=== PATIENT | male | born 1945 | race American Indian/Alaskan Native ===

== ENCOUNTER 2020-07-07 18:02 | Observation (INO) | payer MEDICARE ==
--- NOTE | 2020-07-07 18:51 | Emergency Department Report ---
ED Chest Pain HPI - General Chief Complaint: Chest Pain Stated Complaint: CHEST PAIN Time Seen by Provider: 07/07/20 18:30 Source: patient Mode of arrival: Ambulatory Limitations: No Limitations - History of Present Illness Initial Comments: This is a 75-year-old -[place] male presents to the emergency department via EMS from home with complaint of chest pain that has been going on intermittently over the past 2 weeks. Patient also appears to have some type of a growth to the midsternal to right-sided chest wall that the patient says he is unaware of and says that it was brought to his attention upon arrival to our emergency department. The pain radiates sometimes to the right shoulder, sometimes to the left shoulder, and sometimes towards the back. He denies any shortness of breath, fever, nausea, vomiting or diaphoresis. Patient also says that he has been urinating a lot but it is a small quantity each time. The same can be said of his bowel movements. He is a tobacco smoker but denies any illicit drug use. He does have a history of previous alcohol dependence but says he has not drank in the past 7 weeks. He has a history of a seizure disorder but is not compliant with his seizure medications. He does not have a primary care physician. No recent travel or sick contacts at home. The chest pain worsens with palpation of the chest wall and certain movements. He has not taken anything for symptoms prior to presentation but did receive a full dose aspirin in route with EMS. - Related Data Previous Rx's Medication Instructions Recorded Last Taken Type Divalproex Dr Uma [place]] 125 mg PO BID #60 tablet 02/17/[address] Uma [place]] 125 mg PO BID #60 tablet 02/17/20 Unknown Rx Famotidine [Pepcid] 20 mg PO BID #60 tablet 02/17/20 Unknown Rx Nicotine [Habitrol] 14 mg TD QDAY #7 patch 02/17/20 Unknown Rx levETIRAcetam [Keppra TAB] 750 mg PO BID #60 tablet 02/17/20 Unknown Rx traZODone [Desyrel] 50 mg PO QHS #30 tab 02/17/20 Unknown Rx traZODone [Desyrel] 50 mg PO QHS #30 tablet 02/17/20 Unknown Rx Allergies Allergy/AdvReac Type Severity Reaction Status Date / Time No Known Allergies Allergy Verified 07/07/20 18:23 Heart Score - HEART Score History: Slightly suspicious EKG: Non-specific Age: > 65 Risk factors: 1-2 risk factors Troponin: < normal limit HEART Score: 4 - Critical Actions Critical Actions: 4-6 pts:12-16.6% risk of adverse cardiac event. Should be admitted ED Review of Systems ROS: Stated complaint: CHEST PAIN Other details as noted in HPI Comment: All other systems reviewed and negative Constitutional: denies: chills, fever Eyes: denies: eye pain, vision change ENT: denies: ear pain, throat pain Respiratory: denies: cough, shortness of breath Cardiovascular: chest pain. denies: palpitations Gastrointestinal: denies: abdominal pain, vomiting Genitourinary: frequency. denies: dysuria Musculoskeletal: denies: joint swelling, arthralgia Skin: denies: rash, lesions Neurological: denies: headache, weakness ED Past Medical Hx - Past Medical History Previous Medical History?: Yes Hx Seizures: Yes - Surgical History Past Surgical History?: No - Social History Smoking Status: Current Every Day Smoker Substance Use Type: None - Medications Home Medications: Home Medications Medication Instructions Recorded Confirmed Last Taken Type Divalproex Dr [Elif [place]] 125 mg PO BID #60 tablet 02/17/[address] [Elif [place]] 125 mg PO BID #60 tablet 02/17/20 Unknown Rx Famotidine [Pepcid] 20 mg PO BID #60 tablet 02/17/20 Unknown Rx Nicotine [Habitrol] 14 mg TD QDAY #7 patch 02/17/20 Unknown Rx levETIRAcetam [Keppra TAB] 750 mg PO BID #60 tablet 02/17/20 Unknown Rx traZODone [Desyrel] 50 mg PO QHS #30 tab 02/17/20 Unknown Rx traZODone [Desyrel] 50 mg PO QHS #30 tablet 02/17/20 Unknown Rx ED Physical Exam - General Limitations: No Limitations - Other Other exam information: GENERAL: The patient is well-developed well-nourished. HENT: Normocephalic. Atraumatic. Patient has moist mucous membranes. EYES: Extraocular motions are intact. Pupils equal reactive to light bilaterally. NECK: Supple. Trachea is midline. CHEST/LUNGS: Clear to auscultation. There is no respiratory distress noted. There is some reproducible chest pain along the chest wall, right greater than left. There is a firm masslike growth to the midsternal to right-sided chest wall that is about the size of a half of a baseball. HEART/CARDIOVASCULAR: Regular. There is no tachycardia. There is no murmur. ABDOMEN: Abdomen is soft, nontender. Patient has normal bowel sounds. SKIN: Skin is warm and dry. NEURO: The patient is awake, alert, and oriented. The patient is cooperative. Normal speech. MUSCULOSKELETAL: There is no tenderness or deformity. ED Course Vital Signs 07/07/20 07/07/20 07/07/20 18:25 18:28 18:31 Temperature 97.6 F Pulse Rate 94 H 94 H 83 Respiratory 12 22 Rate Blood Pressure 123/78 Blood Pressure 123/78 [Left] O2 Sat by Pulse 97 98 Oximetry 07/07/20 07/07/20 07/07/20 18:45 19:00 19:15 Temperature Pulse Rate Respiratory 21 21 Rate Blood Pressure 123/78 111/75 111/75 Blood Pressure [Left] O2 Sat by Pulse 97 98 95 Oximetry 07/07/20 07/07/20 19:31 19:45 Temperature Pulse Rate Respiratory 20 14 Rate Blood Pressure 123/78 123/78 Blood Pressure [Left] O2 Sat by Pulse 97 98 Oximetry - Reevaluation(s) Reevaluation #1: 07/08/20 00:03 Lab Results 07/07/20 07/07/20 07/07/20 Range/Units 18:37 18:37 18:37 WBC 6.6 (4.5-11.0) K/mm3 RBC 4.72 (3.65-5.03) M/mm3 Hgb 11.9 (11.8-15.2) gm/dl Hct 37.4 (35.5-45.6) % MCV 79 L (84-94) fl MCH 25 L (28-32) pg MCHC 32 (32-34) % RDW 19.1 H (13.2-15.2) % Plt Count 446 H (140-440) K/mm3 Lymph % (Auto) 18.4 (13.4-35.0) % [place] % (Auto) 7.6 H (0.0-7.3) % Eos % (Auto) 1.0 (0.0-4.3) % Baso % (Auto) 2.2 H (0.0-1.8) % Lymph # (Auto) 1.2 (1.2-5.4) K/mm3 [place] # (Auto) 0.5 (0.0-0.8) K/mm3 Eos # (Auto) 0.1 (0.0-0.4) K/mm3 Baso # (Auto) 0.1 (0.0-0.1) K/mm3 Seg Neutrophils % 70.8 H (40.0-70.0) % Seg Neutrophils # 4.7 (1.8-7.7) K/mm3 PT 12.9 (12.2-14.9) Sec. INR 0.96 (0.87-1.13) Sodium 135 L (137-145) mmol/L Potassium 4.3 (3.6-5.0) mmol/L Chloride 95.1 L (98-107) mmol/L Carbon Dioxide 26 (22-30) mmol/L Anion Gap 18 mmol/L BUN 15 (9-20) mg/dL Creatinine 0.9 (0.8-1.3) mg/dL Estimated GFR > 60 ml/min BUN/Creatinine Ratio 17 % Glucose 123 H (75-100) mg/dL Calcium > 13.0 H* (8.4-10.2) mg/dL Total Bilirubin 0.40 (0.1-1.2) mg/dL AST 17 (5-40) units/L ALT 13 (7-56) units/L Alkaline Phosphatase 90 (35-129) units/L Troponin T < 0.010 (0.00-0.029) ng/mL Total Protein 7.5 (6.3-8.2) g/dL Albumin 3.3 L (3.9-5) g/dL Albumin/Globulin Ratio 0.8 % Plasma/Serum Alcohol (0-0.07) % // Range/Units 18:37 WBC (4.5-11.0) K/mm3 RBC (3.65-5.03) M/mm3 Hgb (11.8-15.2) gm/dl Hct (35.5-45.6) % MCV (84-94) fl MCH (28-32) pg MCHC (32-34) % RDW (13.2-15.2) % Plt Count (140-440) K/mm3 Lymph % (Auto) (13.4-35.0) % [place] % (Auto) (0.0-7.3) % Eos % (Auto) (0.0-4.3) % Baso % (Auto) (0.0-1.8) % Lymph # (Auto) (1.2-5.4) K/mm3 [place] # (Auto) (0.0-0.8) K/mm3 Eos # (Auto) (0.0-0.4) K/mm3 Baso # (Auto) (0.0-0.1) K/mm3 Seg Neutrophils % (40.0-70.0) % Seg Neutrophils # (1.8-7.7) K/mm3 PT (12.2-14.9) Sec. INR (0.87-1.13) Sodium (137-145) mmol/L Potassium (3.6-5.0) mmol/L Chloride (98-107) mmol/L Carbon Dioxide (22-30) mmol/L Anion Gap mmol/L BUN (9-20) mg/dL Creatinine (0.8-1.3) mg/dL Estimated GFR ml/min BUN/Creatinine Ratio % Glucose (75-100) mg/dL Calcium (8.4-10.2) mg/dL Total Bilirubin (0.1-1.2) mg/dL AST (5-40) units/L ALT (7-56) units/L Alkaline Phosphatase (35-129) units/L Troponin T (0.00-0.029) ng/mL Total Protein (6.3-8.2) g/dL Albumin (3.9-5) g/dL Albumin/Globulin Ratio % Plasma/Serum Alcohol < 0.01 (0-0.07) % OBDULIO score - Obdulio Score Age > 65: (1) Yes Aspirin use within the Past 7 Days: (0) No 3 or more CAD Risk Factors: (0) No 2 or more Angina events in past 24 hrs: (1) Yes Known CAD with more than 50% Stenosis: (0) No Elevated Cardiac Markers: (0) No ST Deviation Greater than 0.5mm: (0) No OBDULIO Score: 2 ED Medical Decision Making - Lab Data Result diagrams: 07/07/20 23:27 07/07/20 18:37 - EKG Data -: EKG Interpreted by Me EKG shows normal: sinus rhythm, axis (Right axis deviation), intervals, QRS complexes (Right bundle branch block), ST-T waves Rate: normal - EKG Data When compared to previous EKG there are: no significant change Interpretation: unchanged when compared t (02/17/20) - Radiology Data Radiology results: report reviewed CHEST 1 VIEW 07/07/2020 6:03 PM INDICATION / CLINICAL INFORMATION: Chest pain. COMPARISON: None available. FINDINGS: SUPPORT DEVICES: None. HEART / MEDIASTINUM: No significant abnormality. LUNGS / PLEURA: There is a right perihilar masslike opacity. No pneumothorax. ADDITIONAL FINDINGS: Projectile fragments project over the left suprahilar region. IMPRESSION: 1. Right perih ilar masslike opacity. Further evaluation with chest CT (preferably with IV contrast) recommended. CT chest w con INDICATION: Chest wall mass. TECHNIQUE: CT chest with IV contrast, patient received 100 cc IV Omnipaque [address] scans at this location are performed using CT dose reduction for ALARA by means of automated exposure control. COMPARISON: None available. FINDINGS: There is a large mass involving the right anterior chest wall, including the right anterior third and fourth costochondral junctions. It appears to be invading the right lateral aspect of the sternum at these levels as well as the medial right third rib. The right internal mammary artery passes through the mass but does not appear to be obstructed by the mass. This mass measures 8.3 x 7.1 cm in axial dimension and 7.4 cm in craniocaudal dimension. It appears to have central hypoattenuation likely indicating necrosis. There is a 1.1 cm nodule in the right middle lobe, which is likely a metastatic lesion. There is no mediastinal, hilar, or axillary adenopathy. In the abdomen, there is a heterogeneous hypoattenuating lesion in the posterior lateral right hepatic lobe measuring 2.6 cm which is probably a metastatic lesion. Adrenal glands appear normal. No additional bone lesions are identified. IMPRESSION: 1. Right anterior chest wall mass as detailed above. The mass appears to be arising from an extrapulmonary location such as the pleura or actual chest wall. However, the large size could suggest that it still is a primary bronchogenic malignancy. Another consideration would be a primary chest wall mass such as a chondrosarcoma. The mass is invading the right lateral asp ect of the adjacent sternum and medial aspect of the right third and fourth ribs. The mass would be readily accessible for percutaneous biopsy if needed. 2. 11 mm right middle lobe pulmonary nodule is probably an intrapulmonary metastatic lesion. 3. Heterogeneous right hepatic lobe mass probably indicates liver metastatic disease. - Medical Decision Making This patient presents to the emergency department with a complaint of a 2-week history of intermittent chest pain that has been getting progressively worse. On examination the patient has a firm mass-like growth to the midsternal to right-sided chest wall that the patient says he was not aware of until we brought it to his attention this evening. EKG does not show any morphology consistent with ST elevation myocardial infarction. Chest x-ray shows a masslike projection to the right perihilar region but it was recommended to obtain a CT scan of the chest with IV contrast. CT with IV contrast shows a right anterior chest wall mass that either projects from the pleura versus the chest wall itself. There is also a pulmonary nodule seen concerning for malignancy. They were also able to see a right hepatic lobe mass. All these things together appears concerning for malignancy. The patient's labs shows hypercalcemia with a calcium level of 13 and a corrected calcium level of 13.6. Patient has been started on IV fluid resuscitation. The patient will be admitted to the hospital for further evaluation and treatment and was excepted for admission by the hospitalist, Dr. Larson. Critical Care Time: No Critical care attestation.: If time is entered above; I have spent that time in minutes in the direct care of this critically ill patient, excluding procedure time. ED Disposition Clinical Impression: Mass in chest, Hypercalcemia, Tobacco abuse disorder, Liver mass, right lobe Chest pain Qualifiers: Chest pain type: unspecified Qualified Code(s): R07.9 - Chest pain, unspecified Disposition: OP ADMIT IP TO THIS HOSP Is pt being admited?: Yes Condition: Serious Time of Disposition: 21:23
[2020-07-07 18:52] LABS: Basophils # (Auto) 0.1 K/mm3 (0.0-0.1); Basophils % (Auto) 2.2 % (0.0-1.8); Eosinophils # (Auto) 0.1 K/mm3 (0.0-0.4); Hemoglobin 11.9 gm/dl (11.8-15.2); Lymphocytes # (Auto) 1.2 K/mm3 (1.2-5.4); Lymphocytes % (Auto) 18.4 % (13.4-35.0); Monocytes # (Auto) 0.5 K/mm3 (0.0-0.8); Monocytes % (Auto) 7.6 % (0.0-7.3)
[2020-07-07 19:02] LABS: Hematocrit 37.4 % (35.5-45.6); INR 0.96 (0.87-1.13); Mean Corpuscular HGB Conc 32 % (32-34); Mean Corpuscular Volume 79 fl (84-94); Platelet Count 446 K/mm3 (140-440); Red Blood Count 4.72 M/mm3 (3.65-5.03); Red Cell Distribution Width 19.1 % (13.2-15.2)
--- NOTE | 2020-07-07 19:11 | XRay Report ---
CHEST 1 VIEW 07/07/2020 6:03 PM INDICATION / CLINICAL INFORMATION: Chest pain. COMPARISON: None available. FINDINGS: SUPPORT DEVICES: None. HEART / MEDIASTINUM: No significant abnormality. LUNGS / PLEURA: There is a right perihilar masslike opacity. No pneumothorax. ADDITIONAL FINDINGS: Projectile fragments project over the left suprahilar region. IMPRESSION: 1. Right perihilar masslike opacity. Further evaluation with chest CT (preferably with IV contrast) r ecommended. Signer Name: Amrit Razo MD Signed: 07/07/2020 7:06 PM Workstation Name: [id number]
[2020-07-07 19:18] LABS: Alanine Aminotransferase 13 units/L (7-56); Albumin 3.3 g/dL (3.9-5); BUN/Creatinine Ratio 17; Blood Urea Nitrogen 15 mg/dL (9-20); Hemolysis Index 5
[2020-07-07 19:37] LABS: Calcium > 13.0 mg/dL (8.4-10.2)
--- NOTE | 2020-07-07 20:34 | Cat Scan Report ---
CT chest w con INDICATION: Chest wall mass. TECHNIQUE: CT chest with IV contrast, patient received 100 cc IV Omnipaque [address] scans at this location are performed using CT dose reduction for ALARA by means of automated exposure control. COMPARISON: None available. FINDINGS: There is a large mass involving the right anterior chest wall, including the right anterior third and fourth costochondral junctions. It appears to be invading the right lateral aspect of the sternum at these levels as well as the medial right third rib. The right internal mammary artery passes through the mass but does not appear to be obstructed by the mass. This mass measures 8.3 x 7.1 cm in axial dimension and 7.4 cm in craniocaudal dimension. It appears to have central hypoattenuation likely ind icating necrosis. There is a 1.1 cm nodule in the right middle lobe, which is likely a metastatic lesion. There is no mediastinal, hilar, or axillary adenopathy. In the abdomen, there is a heterogeneous hypoattenuating lesion in the posterior lateral right hepati c lobe measuring 2.6 cm which is probably a metastatic lesion. Adrenal glands appear normal. No additional bone lesions are identified. IMPRESSION: 1. Right anterior chest wall mass as detailed above. The mass appears to be arising from an extrapulm onary location such as the pleura or actual chest wall. However, the large size could suggest that it still is a primary bronchogenic malignancy. Another consideration would be a primary chest wall mass such as a chondrosarcoma. The mass is invading the right lateral aspect of the adjacent sternum and medial aspect of the right third and fourth ribs. The mass would be readily accessible for percutaneo us biopsy if needed. 2. 11 mm right middle lobe pulmonary nodule is probably an intrapulmonary metastatic lesion. 3. Heterogeneous right hepatic lobe mass probably indicates liver metastatic disease. Signer Name: Amrit Razo MD Signed: 07/07/2020 8:29 PM Workstation Name: [id number]
[2020-07-07] MEDS ORDERED: NITROGLYCERIN 0.4 MG TAB SUBL SL PRN (21:56)
[2020-07-07] MEDS ORDERED: ONDANSETRON 4 MG/2 ML INJ IV PRN (21:56)
[2020-07-07] MEDS ORDERED: MAGNESIUM HYDROXIDE (MOM) ORAL LIQD UDC PO PRN (21:56)
[2020-07-07] MEDS ORDERED: ACETAMINOPHEN 325 MG TAB PO PRN ×2 (21:56)
[2020-07-07 22:11] LABS: Bilirubin,Urine NEG (Negative); Blood,Urine NEG (Negative); Color,Urine Yellow (Yellow); Mucus,Urine 3+ /HPF; Protein,Urine <15 mg/dL mg/dL (Negative)
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
[2020-07-07] MEDS ORDERED: SODIUM CHLORIDE 0.9% 1000 ML 1,000 ML ONE (22:46)
[2020-07-07] MEDS: SODIUM CHLORIDE 0.9% 1000 ML 1,000 ML IV SCH (22:50)
[2020-07-07 23:46] LABS: Basophils # (Auto) 0.1 K/mm3 (0.0-0.1); Basophils % (Auto) 0.9 % (0.0-1.8); Eosinophils # (Auto) 0.1 K/mm3 (0.0-0.4); Eosinophils % (Auto) 0.9 % (0.0-4.3); Hematocrit 41.6 % (35.5-45.6); Hemoglobin 13.6 gm/dl (11.8-15.2); Lymphocytes # (Auto) 1.4 K/mm3 (1.2-5.4); Lymphocytes % (Auto) 19.7 % (13.4-35.0); Mean Corpuscular HGB Conc 33 % (32-34); Mean Corpuscular Volume 80 fl (84-94); Monocytes # (Auto) 0.5 K/mm3 (0.0-0.8); Monocytes % (Auto) 7.4 % (0.0-7.3); Platelet Count 448 K/mm3 (140-440); Red Blood Count 5.21 M/mm3 (3.65-5.03); Red Cell Distribution Width 19.2 % (13.2-15.2)
[2020-07-08 00:06] LABS: BUN/Creatinine Ratio 19; Blood Urea Nitrogen 15 mg/dL (9-20); Hemolysis Index 21
[2020-07-08 00:12] LABS: Calcium > 13.0 mg/dL (8.4-10.2)
[2020-07-08] MEDS: MORPHINE 4 MG/1 ML INJ IV PRN ×3 (04:24→20:23)
[2020-07-08] MEDS: SODIUM CHLORIDE 0.9% 1000 ML 1,000 ML IV SCH (04:28)
[2020-07-08 05:13] LABS: Basophils # (Auto) 0.1 K/mm3 (0.0-0.1); Basophils % (Auto) 1.2 % (0.0-1.8); Eosinophils # (Auto) 0.1 K/mm3 (0.0-0.4); Eosinophils % (Auto) 1.1 % (0.0-4.3); Hematocrit 34.6 % (35.5-45.6); Hemoglobin 11.3 gm/dl (11.8-15.2); Lymphocytes # (Auto) 1.1 K/mm3 (1.2-5.4); Lymphocytes % (Auto) 20.4 % (13.4-35.0); Mean Corpuscular HGB Conc 33 % (32-34); Mean Corpuscular Volume 78 fl (84-94); Monocytes # (Auto) 0.4 K/mm3 (0.0-0.8); Monocytes % (Auto) 7.4 % (0.0-7.3); Platelet Count 405 K/mm3 (140-440); Red Blood Count 4.44 M/mm3 (3.65-5.03); Red Cell Distribution Width 18.9 % (13.2-15.2)
[2020-07-08 05:30] LABS: Blood Urea Nitrogen 14 mg/dL (9-20); Hemolysis Index 10
[2020-07-08 05:36] LABS: INR 1.01 (0.87-1.13)
[2020-07-08 05:42] LABS: BUN/Creatinine Ratio 23
[2020-07-08 05:43] LABS: Calcium 12.3 mg/dL (8.4-10.2)
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
[2020-07-08] MEDS ORDERED: CALCITONIN,SALMON,SYNTHETIC 400 UNIT/2 ML INJ MDV IM SCH (10:00)
[2020-07-08] MEDS ORDERED: SODIUM CHLORIDE 0.9% 1000 ML 1,000 ML IV SCH (10:00)
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
--- NOTE | 2020-07-08 10:38 | Progress Note ---
Assessment and Plan Assessment and plan: Hypercalcemia. Continue IV calcitonin and IV fluids. Nephrology following. Etiology likely secondary to hypercalcemia of malignancy. Oncology evaluation pending. Continue to monitor BMP. Follow-up PTH and PTH related peptide. Chest mass. Heme/oncology evaluation pending. Patient will need biopsy for further evaluation. Pulmonary following Chest pain. Etiology likely secondary to above. Follow-up echocardiogram and stress test. Seizure disorder. Continue AEDs and seizure precautions. History of EtOH abuse. [facility] protocol History Interval history: No new issues overnight. Hospitalist Physical - Constitutional Vitals: Temp Pulse Resp BP Pulse Ox 98.2 F 59 L 18 121/75 96 07/08/20 07:52 07/08/20 08:35 07/08/20 07:52 07/08/20 07:52 07/08/20 07:52 General appearance: Present: no acute distress, well-nourished, cachectic - EENT Eyes: Present: PERRL, EOM intact ENT: hearing intact, clear oral mucosa, dentition normal - Neck Neck: Present: supple, normal ROM - Respiratory Respiratory effort: normal Respiratory: bilateral: CTA - Cardiovascular Rhythm: regular Heart Sounds: Present: S1 & S2. Absent: gallop, rub - Extremities Extremities: no ischemia, No edema, Full ROM - Abdominal General gastrointestinal: soft, non-tender, non-distended, normal bowel sounds - Integumentary Integumentary: Present: clear, warm, dry - Neurologic Neurologic: CNII-XII intact, moves all extremities HEART Score - HEART Score EKG: Non-specific Age: > 65 Risk factors: 1-2 risk factors Troponin: Troponin T < 0.010 ng/mL (0.00-0.029) 07/08/20 04:29 Troponin: < normal limit - Critical Actions Critical Actions: 4-6 pts:12-16.6% risk of adverse cardiac event. Should be admitted Results - Labs CBC & Chem 7: 07/08/20 04:29 07/08/20 04:29 Labs: Laboratory Last Values WBC 5.5 K/mm3 (4.5-11.0) 07/08/20 04:29 RBC 4.44 M/mm3 (3.65-5.03) 07/08/20 04:29 Hgb 11.3 gm/dl (11.8-15.2) L 07/08/20 04:29 Hct 34.6 % (35.5-45.6) L D 07/08/20 04:29 MCV 78 fl (84-94) L 07/08/20 04:29 MCH 26 pg (28-32) L 07/08/20 04:29 MCHC 33 % (32-34) 07/08/20 04:29 RDW 18.9 % (13.2-15.2) H 07/08/20 04:29 Plt Count 405 K/mm3 (140-440) 07/08/20 04:29 Lymph % (Auto) 20.4 % (13.4-35.0) 07/08/20 04:29 [place] % (Auto) 7.4 % (0.0-7.3) H 07/08/20 04:29 Eos % (Auto) 1.1 % (0.0-4.3) 07/08/20 04:29 Baso % (Auto) 1.2 % (0.0-1.8) 07/08/20 04:29 Lymph # (Auto) 1.1 K/mm3 (1.2-5.4) L 07/08/20 04:29 [place] # (Auto) 0.4 K/mm3 (0.0-0.8) 07/08/20 04:29 Eos # (Auto) 0.1 K/mm3 (0.0-0.4) 07/08/20 04:29 Baso # (Auto) 0.1 K/mm3 (0.0-0.1) 07/08/20 04:29 Seg Neutrophils % 69.9 % (40.0-70.0) 07/08/20 04:29 Seg Neutrophils # 3.8 K/mm3 (1.8-7.7) 07/08/20 04:29 PT 13.4 Sec. (12.2-14.9) 07/08/20 04:29 INR 1.01 (0.87-1.13) 07/08/20 04:29 Sodium 137 mmol/L (137-145) 07/08/20 04:29 Potassium 4.3 mmol/L (3.6-5.0) 07/08/20 04:29 Chloride 100.2 mmol/L (98-107) 07/08/20 04:29 Carbon Dioxide 24 mmol/L (22-30) 07/08/20 04:29 Anion Gap 17 mmol/L 07/08/20 04:29 BUN 14 mg/dL (9-20) 07/08/20 04:29 Creatinine 0.6 mg/dL (0.8-1.3) L 07/08/20 04:29 Estimated GFR > 60 ml/min 07/08/20 04:29 BUN/Creatinine Ratio 23 % 07/08/20 04:29 Glucose 112 mg/dL (75-100) H 07/08/20 04:29 Calcium 12.3 mg/dL (8.4-10.2) H* 07/08/20 04:29 Calcium 12.3 mg/dL (8.4-10.2) H* 07/08/20 04:29 Total Bilirubin 0.40 mg/dL (0.1-1.2) 07/07/20 18:37 AST 17 units/L (5-40) 07/07/20 18:37 ALT 13 units/L (7-56) 07/07/20 18:37 Alkaline Phosphatase 90 units/L (35-129) 07/07/20 18:37 Troponin T < 0.010 ng/mL (0.00-0.029) 07/08/20 04:29 Total Protein 7.5 g/dL (6.3-8.2) 07/07/20 18:37 Albumin 3.3 g/dL (3.9-5) L 07/07/20 18:37 Albumin/Globulin Ratio 0.8 % 07/07/20 18:37 Urine Color Yellow (Yellow) 07/07/20 21:53 Urine Turbidity Clear (Clear) 07/07/20 21:53 Urine pH 5.0 (5.0-7.0) 07/07/20 21:53 Ur Specific Left Hand > 1.059 (1.003-1.030) H 07/07/20 21:53 Urine Protein <15 mg/dl mg/dL (Negative) 07/07/20 21:53 Urine Glucose (UA) Neg mg/dL (Negative) 07/07/20 21:53 Urine Ketones Neg mg/dL (Negative) 07/07/20 21:53 Urine Blood Neg (Negative) 07/07/20 21:53 Urine Nitrite Neg (Negative) 07/07/20 21:53 Urine Bilirubin Neg (Negative) 07/07/20 21:53 Urine Urobilinogen 4.0 mg/dL (<2.0) 07/07/20 21:53 Ur Leukocyte Esterase Neg (Negative) 07/07/20 21:53 Urine WBC (Auto) 1.0 /HPF (0.0-6.0) 07/07/20 21:53 Urine RBC (Auto) 3.0 /HPF (0.0-6.0) 07/07/20 21:53 U Epithel Cells (Auto) 1.0 /HPF (0-13.0) 07/07/20 21:53 Urine Mucus 3+ /HPF 07/07/20 21:53 Plasma/Serum Alcohol < 0.01 % (0-0.07) 07/07/20 18:37 Cloud/IV: Voiding Method Urinal IV Catheter Type [Left Forearm INT / Saline Lock ] Active Medications - Current Medications Current Medications: Generic Name Dose Route Start Last Admin Trade Name Freq PRN Reason Stop Dose Admin Acetaminophen 650 mg 07/07/20 21:56 Tylenol PO Q4H PRN Pain MILD(1-3)/Fever >100.5/LE Aspirin 325 mg 07/08/20 10:00 Ecotrin PO QDAY [facility] Calcitonin [place] 200 unit 07/08/20 11:00 Miacalcin IM 07/10/20 22:01 Q12HR [facility] Enoxaparin Sodium 40 mg 07/08/20 22:00 Enoxaparin SUB-Q QDAY@2200 [facility] Protocol Sodium Chloride 1,000 mls @ 125 mls/hr 07/08/20 10:00 Nacl 0.9% 1000 Ml IV DIRECT [facility] Morphine Sulfate 2 mg 07/07/20 21:56 07/08/20 04:24 Morphine IV 2 mg Q5MIN PRN Administration Chest Pain Nitroglycerin 0.4 mg 07/07/20 21:56 Nitrostat SL Q5M PRN Chest Pain Ondansetron HCl 4 mg 07/07/20 21:56 Zofran IV Q8H PRN Nausea And Vomiting Sodium Chloride 10 ml 07/07/20 21:56 07/08/20 04:24 Sodium Chloride Flush Syringe 10 Ml IV 10 ml PRN PRN Administration LINE FLUSH Sodium Chloride 10 ml 07/07/20 22:00 07/08/20 00:24 Sodium Chloride Flush Syringe 10 Ml IV 10 ml BID ROWENA Administration
[2020-07-08] MEDS: ASPIRIN EC 325 MG TAB PO SCH (10:51)
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
[2020-07-08] MEDS: CALCITONIN,SALMON,SYNTHETIC 400 UNIT/2 ML INJ MDV IM SCH ×2 (12:52→22:22)
[2020-07-08] MEDS ORDERED: PAMIDRONATE DISODIUM 90 MG in SODIUM CHLORIDE 0.9% 1000 ML 1,000 ML IV ONE (12:57)
--- NOTE | 2020-07-08 13:32 | Event Note ---
Date: 07/08/[address] guided biopsy of right chest wall mass. This is normally coordinated with the diagnostic radiologists who perform most of the biopsies. I contacted them to prevent a delay of care and placed the appropriate orders. Please coordinate biopsies with the diagnostic radiologists.
[2020-07-08 14:53] LABS: Uric Acid 5.9 mg/dL (3.5-7.6)
[2020-07-08] MEDS ORDERED: oxyCODONE /ACETAMINOPHEN 5-325MG TAB PO PRN (15:11)
[2020-07-08] MEDS: ENOXAPARIN 40 MG/0.4 ML INJ SUB-Q SCH (22:23)
[2020-07-09 06:09] LABS: Blood Urea Nitrogen 11 mg/dL (9-20); Calcium 10.5 mg/dL (8.4-10.2); Hemolysis Index 18
[2020-07-09 06:15] LABS: Basophils % (Auto) 0.7 % (0.0-1.8); Eosinophils % (Auto) 0.5 % (0.0-4.3); Hematocrit 32.3 % (35.5-45.6); Hemoglobin 10.6 gm/dl (11.8-15.2); Lymphocytes # (Auto) 0.8 K/mm3 (1.2-5.4); Lymphocytes % (Auto) 12.3 % (13.4-35.0); Mean Corpuscular HGB Conc 33 % (32-34); Mean Corpuscular Volume 78 fl (84-94); Monocytes # (Auto) 0.4 K/mm3 (0.0-0.8); Monocytes % (Auto) 5.8 % (0.0-7.3); Platelet Count 353 K/mm3 (140-440); Red Blood Count 4.12 M/mm3 (3.65-5.03); Red Cell Distribution Width 18.7 % (13.2-15.2)
[2020-07-09 06:16] LABS: BUN/Creatinine Ratio 16
[2020-07-09 06:49] LABS: Calcium 10.6 mg/dL (8.4-10.2)
[2020-07-09] MEDS ORDERED: ONDANSETRON 4 MG/2 ML INJ IV SCH (09:00)
[2020-07-09] MEDS ORDERED: HYDROmorphone 1 MG/1 ML INJ IV SCH ×2 (09:00)
--- NOTE | 2020-07-09 09:07 | Progress Note ---
Assessment and Plan Assessment and plan: Hypercalcemia of malignancy. Continue IV calcitonin and IV fluids. Nephrology following. Oncology following. Continue to monitor BMP. Follow-up PTH and PTH related peptide. Chest mass. Heme/oncology evaluation pending. Patient will need biopsy for further evaluation. Pulmonary following Chest pain. Etiology likely secondary to above. Echocardiogram reveals EF of 55 to 60%. Aortic valve sclerosis and enlargement of right ventricle. Seizure disorder. Continue AEDs and seizure precautions. History of EtOH abuse. [facility] protocol. 07/09/2020. Patient to have needle biopsy of tumor today with radiology. Continue pamidronate, IV fluid and calcitonin. Oncology to evaluate for possib le radiation versus outpatient follow-up. History Interval history: No new issues overnight. Hospitalist Physical - Constitutional Vitals: Temp Pulse Resp BP Pulse Ox 97.9 F 74 19 131/88 99 07/09/20 04:00 07/09/20 08:40 07/09/20 08:00 07/09/20 04:00 07/09/20 08:00 General appearance: Present: no acute distress - EENT Eyes: Present: PERRL, EOM intact ENT: hearing intact, clear oral mucosa, dentition normal - Neck Neck: Present: supple, normal ROM - Respiratory Respiratory effort: normal Respiratory: bilateral: CTA - Cardiovascular Rhythm: regular Heart Sounds: Present: S1 & S2. Absent: gallop, rub - Extremities Extremities: no ischemia, No edema, Full ROM - Abdominal General gastrointestinal: soft, non-tender, non-distended, normal bowel sounds - Integumentary Integumentary: Present: clear, warm, dry - Neurologic Neurologic: CNII-XII intact, moves all extremities HEART Score - HEART Score EKG: Non-specific Age: > 65 Risk factors: 1-2 risk factors Troponin: Troponin T < 0.010 ng/mL (0.00-0.029) 07/08/20 04:29 Troponin: < normal limit - Critical Actions Critical Actions: 4-6 pts:12-16.6% risk of adverse cardiac event. Should be admitted Results - Labs CBC & Chem 7: 07/09/20 05:18 07/09/20 05:18 Labs: Laboratory Last Values WBC 6.5 K/mm3 (4.5-11.0) 07/09/20 05:18 RBC 4.12 M/mm3 (3.65-5.03) 07/09/20 05:18 Hgb 10.6 gm/dl (11.8-15.2) L 07/09/20 05:18 Hct 32.3 % (35.5-45.6) L 07/09/20 05:18 MCV 78 fl (84-94) L 07/09/20 05:18 MCH 26 pg (28-32) L 07/09/20 05:18 MCHC 33 % (32-34) 07/09/20 05:18 RDW 18.7 % (13.2-15.2) H 07/09/20 05:18 Plt Count 353 K/mm3 (140-440) 07/09/20 05:18 Lymph % (Auto) 12.3 % (13.4-35.0) L 07/09/20 05:18 [place] % (Auto) 5.8 % (0.0-7.3) 07/09/20 05:18 Eos % (Auto) 0.5 % (0.0-4.3) 07/09/20 05:18 Baso % (Auto) 0.7 % (0.0-1.8) 07/09/20 05:18 Lymph # (Auto) 0.8 K/mm3 (1.2-5.4) L 07/09/20 05:18 [place] # (Auto) 0.4 K/mm3 (0.0-0.8) 07/09/20 05:18 Eos # (Auto) 0.0 K/mm3 (0.0-0.4) 07/09/20 05:18 Baso # (Auto) 0.0 K/mm3 (0.0-0.1) 07/09/20 05:18 Seg Neutrophils % 80.7 % (40.0-70.0) H 07/09/20 05:18 Seg Neutrophils # 5.2 K/mm3 (1.8-7.7) 07/09/20 05:18 PT 13.4 Sec. (12.2-14.9) 07/08/20 04:29 INR 1.01 (0.87-1.13) 07/08/20 04:29 Sodium 136 mmol/L (137-145) L 07/09/20 05:18 Potassium 4.1 mmol/L (3.6-5.0) 07/09/20 05:18 Chloride 101.2 mmol/L (98-107) 07/09/20 05:18 Carbon Dioxide 22 mmol/L (22-30) 07/09/20 05:18 Anion Gap 17 mmol/L 07/09/20 05:18 BUN 11 mg/dL (9-20) 07/09/20 05:18 Creatinine 0.7 mg/dL (0.8-1.3) L 07/09/20 05:18 Estimated GFR > 60 ml/min 07/09/20 05:18 BUN/Creatinine Ratio 16 % 07/09/20 05:18 Glucose 114 mg/dL (75-100) H 07/09/20 05:18 POC Glucose 120 (70-105) H 07/08/20 22:02 Uric Acid 5.9 mg/dL (3.5-7.6) 07/08/20 13:22 Calcium 10.5 mg/dL (8.4-10.2) H 07/09/20 05:18 Calcium 10.6 mg/dL (8.4-10.2) H 07/09/20 05:18 Magnesium 1.70 mg/dL (1.7-2.3) 07/08/20 13:22 Iron 11 ug/dL (49-181) L 07/09/20 05:18 TIBC 157 mcg/dL (250-450) L 07/09/20 05:18 Total Bilirubin 0.40 mg/dL (0.1-1.2) 07/07/20 18:37 AST 17 units/L (5-40) 07/07/20 18:37 ALT 13 units/L (7-56) 07/07/20 18:37 Alkaline Phosphatase 90 units/L (35-129) 07/07/20 18:37 Lactate Dehydrogenase 181 units/L (91-180) H 07/09/20 05:18 Troponin T < 0.010 ng/mL (0.00-0.029) 07/08/20 04:29 Total Protein 7.5 g/dL (6.3-8.2) 07/07/20 18:37 Albumin 3.3 g/dL (3.9-5) L 07/07/20 18:37 Albumin/Globulin Ratio 0.8 % 07/07/20 18:37 PTH Intact 4.66 pg/mL (15-65) L 07/08/20 13:22 Urine Color Yellow (Yellow) 07/07/20 21:53 Urine Turbidity Clear (Clear) 07/07/20 21:53 Urine pH 5.0 (5.0-7.0) 07/07/20 21:53 Ur Specific [place] > 1.059 (1.003-1.030) H 07/07/20 21:53 Urine Protein <15 mg/dl mg/dL (Negative) 07/07/20 21:53 Urine Glucose (UA) Neg mg/dL (Negative) 07/07/20 21:53 Urine Ketones Neg mg/dL (Negative) 07/07/20 21:53 Urine Blood Neg (Negative) 07/07/20 21:53 Urine Nitrite Neg (Negative) 07/07/20 21:53 Urine Bilirubin Neg (Negative) 07/07/20 21:53 Urine Urobilinogen 4.0 mg/dL (<2.0) 07/07/20 21:53 Ur Leukocyte Esterase Neg (Negative) 07/07/20 21:53 Urine WBC (Auto) 1.0 /HPF (0.0-6.0) 07/07/20 21:53 Urine RBC (Auto) 3.0 /HPF (0.0-6.0) 07/07/20 21:53 U Epithel Cells (Auto) 1.0 /HPF (0-13.0) 07/07/20 21:53 Urine Mucus 3+ /HPF 07/07/20 21:53 Plasma/Serum Alcohol < 0.01 % (0-0.07) 07/07/20 18:37 - Diagnostic Impressions Diagnostic Impressions: Echocardiogram 07/07/20 21:58 Transthoracic Echocardiogram Indication: Chest pain BP: 121/71 HR: 61 Conclusions *EF 55-60% *AORTIC VALVE SCLEROSIS *BORDERLINE DILITATION OF THE ASCENDING AORTA *ENLARGE OF THE RV RA *MILD MR TR Findings Left Ventricle: The left ventricular chamber size is normal. Global left ventricular systolic function is normal. The estimated ejection fraction is 55-60%. Abnormal left ventricular diastolic filling is observed, consistent with impaired relaxation. Left Atrium: The left atrial chamber size is normal. Right Ventricle: The right ventricle is moderately dilated. Right Atrium: The right atrium is mild to moderately dilated. Aortic Valve: Mild aortic leaflet calcification is visualized. There is trace of aortic regurgitation. Mitral Valve: The mitral valve leaflets are mildly thickened. There is mild mitral regurgitation. Tricuspid Valve: The tricuspid valve leaflets are normal. There is mild tricuspid regurgitation. The right ventricular systolic pressure is calculated at 33 mmHg. Pulmonic Valve: The pulmonic valve appears normal. There is trace pulmonic regurgitation. Pericardium: There is no pericardial effusion. Venous: The inferior vena cava appears normal. Measurements Chambers 2D Name Value Normal Range IVSd (2D) 0.99 cm (0.6 - 1.1) LVPWd (2D) 0.98 cm (0.6 - 1.1) LVIDd (2D) 4.01 cm (3.7 - 5.6) LVIDs (2D) 2.87 cm (2 - 3.8) LV FS (2D) 28.5 % - EF Teichholz (2D) 55.51 % - Ao root diameter (2D) 3.25 cm (2 - 3.7) Volumes/Mass Name Value Normal Range LA ESV SP 4CH (A/L) 15.35 ml - LA ESV SP 2CH (A/L) 29.09 ml - LA ESV BP (A/L) 21.88 ml - LA ESV BP (A/L) index 11.76 ml/m2 - LA ESV SP 4CH (MOD) 12.23 ml - LA ESV SP 2CH (MOD) 30.04 ml - LA ESV BP (MOD) 19.51 ml - LA ESV BP (MOD) index 10.49 ml/m2 - Diastolic/Systolic Function Name Value Normal Range MV E-wave Vmax 0.75 m/sec - MV deceleration time 254.42 msec - MV A-wave Vmax 0.99 m/sec - MV E:A ratio 0.75 ratio - Aortic Valve Name Value Normal Range AV Vmax 1.23 m/sec - AV VTI 25.66 cm - AV peak gradient 6 mmHg - AV mean gradient 3.02 mmHg - LVOT diameter 2.03 cm - LVOT Vmax 0.83 m/sec - LVOT VTI 17.44 cm - LVOT peak gradient 2.74 mmHg - LVOT mean gradient 1.29 mmHg - SV LVOT 56.33 ml - LATOYA (continuity Vmax) 2.18 cm2 - LATOYA (continuity VTI) 2.2 cm2 - AR PHT 461.39 msec - AR peak gradient 46 mmHg - Mitral Valve Name Value Normal Range MR Vmax 3.39 m/sec - Tricuspid Valve Name Value Normal Range TR Vmax 2.76 m/sec - TR peak gradient 30 mmHg - RAP 3 mmHg - RVSP 33 mmHg - Pulmonic Valve/Qp:Qs Name Value Normal Range PV acceleration time 91.34 msec - Cloud/IV: Voiding Method Urinal IV Catheter Type [Left Forearm INT / Saline Lock ] Active Medications - Current Medications Current Medications: Generic Name Dose Route Start Last Admin Trade Name Freq PRN Reason Stop Dose Admin Acetaminophen 650 mg 07/07/20 21:56 Tylenol PO Q4H PRN Pain MILD(1-3)/Fever >100.5/LE Aspirin 325 mg 07/08/20 10:00 07/08/20 10:51 Ecotrin PO 325 mg QDAY ROWENA Administration Calcitonin [place] 200 unit 07/08/20 11:00 07/08/20 22:22 Miacalcin IM 07/10/20 22:01 200 unit Q12HR ROWENA Administration Enoxaparin Sodium 40 mg 07/08/20 22:00 07/08/20 22:23 Enoxaparin SUB-Q 40 mg QDAY@2200 ROWENA Administration Protocol Hydromorphone HCl 1 mg 07/09/20 09:00 Dilaudid IV 07/09/20 14:00 ONCE [facility] Hydromorphone HCl 1 mg 07/09/20 09:00 Dilaudid IV 07/09/20 14:00 ONCE [facility] Sodium Chloride 1,000 mls @ 125 mls/hr 07/08/20 10:00 Nacl 0.9% 1000 Ml IV DIRECT ROWENA Morphine Sulfate 2 mg 07/07/20 21:56 07/08/20 20:23 Morphine IV 2 mg Q5MIN PRN Administration Chest Pain Nitroglycerin 0.4 mg 07/07/20 21:56 Nitrostat SL Q5M PRN Chest Pain Ondansetron HCl 4 mg 07/07/20 21:56 Zofran IV Q8H PRN Nausea And Vomiting Ondansetron HCl 4 mg 07/09/20 09:00 Zofran IV 07/09/20 15:00 ONCE ROWENA Oxycodone/Acetaminophen 1 tab 07/08/20 15:11 Percocet 5/325 PO Q4H PRN Pain, Moderate (4-6) Sodium Chloride 10 ml 07/07/20 21:56 07/08/20 04:24 Sodium Chloride Flush Syringe 10 Ml IV 10 ml PRN PRN Administration LINE FLUSH Sodium Chloride 10 ml 07/07/20 22:00 07/08/20 22:24 Sodium Chloride Flush Syringe 10 Ml IV 10 ml BID ROWENA Administration Nutrition/Malnutrition Assess - Dietary Evaluation Nutrition/Malnutrition Findings: Nutrition Notes Start: 07/08/20 14:37 Freq: Status: Active Protocol: Document 07/08/20 14:37 CALEB (Rec: 07/08/20 14:43 CALEB [id number]) Co-Sign 07/08/20 14:37 LM Nutrition Notes Need for Assessment generated from: referral specialist,MST Initial or Follow up Assessment Other Pertinent Diagnosis Liver mass, ETOH abuse, smoker , chest pain Current Diet NPO Labs/Tests Ca 12.3 Pertinent Medications NS 250ml/hr Height 6 ft Weight 60.5 kg [place] Body Weight (kg) 80.90 BMI 18.1 Weight Status Underweight Subjective/Other Information Consulted MST 2. Per pt, no wt changes and has been eating normally. Pt's major concern was his constipation and his urine color. Pt reported drinking plenty of fluids [employer], no medications, normal physical activity, and low vegetable intake. Noted no bowel regimen in place. Recommending laxative if no medical contradictions, per RN , she will consult MD. Observed lunch tray with >75% of meal consumed. Burn Absent Trauma Absent GI Symptoms Constipation Current % PO Negligible Minimum of two criteria No physical signs of malnutrition #1 Nutrition Diagnosis No nutrition diagnosis at this time Nutrition Intervention Revisit per MD consult or patient Sign Off request:
[2020-07-09] MEDS ORDERED: HYDROmorphone 1 MG/1 ML INJ ONE ×2 (09:32)
[2020-07-09] MEDS ORDERED: ONDANSETRON 4 MG/2 ML INJ ONE (09:33)
--- NOTE | 2020-07-09 09:38 | Progress Note ---
<MADELIN PENA - Last Filed: 07/09/20 09:40> Assessment and Plan Right anterior chest wall mass Chest CT reports a lung mass, right middle lobe nodule and liver mass concerning for malignancy. Hypercalcemia with a calcium level of 13 on presentation An echocardiogram reports dilation of the right heart chambers but a normal LV s ystolic function, EF 55-60%. No further cardiac workup indicated. Will sign off. Subjective Date of service: 07/09/20 Interval history: No cardiac events. For planned biopsy of right chest wall mass. Objective Vital Signs Temp Pulse Pulse Pulse Resp Resp BP 07/09/20 08:40 74 07/09/20 08:00 104 H 104 H 19 07/09/20 07:44 97.4 F L 70 18 104/70 07/09/20 04:00 97.9 F 77 16 07/09/20 03:58 97.9 F 77 17 131/88 07/09/20 00:00 77 07/08/20 23:34 98.4 F 83 16 07/08/20 23:27 98.4 F 83 18 134/84 07/08/20 20:23 20 07/08/20 20:00 20 07/08/20 19:04 98.6 F 76 14 117/73 07/08/20 16:38 98.2 F 70 18 106/66 07/08/20 16:00 70 BP Pulse Ox 07/09/20 08:40 07/09/20 08:00 99 07/09/20 07:44 96 07/09/20 04:00 131/88 98 07/09/20 03:58 96 07/09/20 00:00 07/08/20 23:34 134/64 96 07/08/20 23:27 95 07/08/20 20:23 07/08/20 20:00 07/08/20 19:04 95 07/08/20 16:38 97 07/08/20 16:00 - Physical Examination General: No Apparent Distress HEENT: Positive: PERRL Neck: Positive: trachea midline Cardiac: Positive: Reg Rate and Rhythm Lungs: Positive: Decreased Breath Sounds Neuro: Positive: Grossly Intact - Labs and Meds Cardiac Enzymes 07/08/20 07/09/20 Range/Units 13:22 05:18 Lactate Dehydrogenase 197 H 181 H (91-180) units/L CBC 07/09/20 Range/Units 05:18 WBC 6.5 (4.5-11.0) K/mm3 RBC 4.12 (3.65-5.03) M/mm3 Hgb 10.6 L (11.8-15.2) gm/dl Hct 32.3 L (35.5-45.6) % Plt Count 353 (140-440) K/mm3 Lymph # (Auto) 0.8 L (1.2-5.4) K/mm3 [place] # (Auto) 0.4 (0.0-0.8) K/mm3 Eos # (Auto) 0.0 (0.0-0.4) K/mm3 Baso # (Auto) 0.0 (0.0-0.1) K/mm3 Comprehensive Metabolic Panel 07/09/20 07/09/20 Range/Units 05:18 05:18 Sodium 136 L (137-145) mmol/L Potassium 4.1 (3.6-5.0) mmol/L Chloride 101.2 (98-107) mmol/L Carbon Dioxide 22 (22-30) mmol/L BUN 11 (9-20) mg/dL Creatinine 0.7 L (0.8-1.3) mg/dL Glucose 114 H (75-100) mg/dL Calcium 10.5 H 10.6 H (8.4-10.2) mg/dL <HUGO TANNER - Last Filed: 07/15/20 22:54> Assessment and Plan I SAWT HIS PT & AGREE WITH THE Dx & Tx PLAN.
--- NOTE | 2020-07-09 10:03 | Progress Note ---
Assessment and Plan Impression: * Hypercalcemia * Chest pain * Seizure disorder * history of Etoh abuse * chest mass Plan: * iv calcitonin and iv fluids * calcium is better today * continue iv hydration, pamidronate was ordered by hematology * ?hypercalcemia of malignancy likely * oncology to evaluate and follow for lung mass * daily lytes and strict i/os * follow up spep, upep, umberto pending and pth levels noted * check pth related peptide with chest mass Subjective Date of service: 07/09/20 Principal diagnosis: hypercalcemia Interval history: resting in bed today Objective - Exam Narrative Exam: GENERAL: The patient is well-developed well-nourished. HENT: Normocephalic. Atraumatic. Patient has moist mucous membranes. EYES: Extraocular motions are intact. Pupils equal reactive to light bilate rally. NECK: Supple. Trachea is midline. CHEST/LUNGS: Clear to auscultation. There is no respiratory distress noted. There is some reproducible chest pain along the chest wall, right greater than left. There is a firm masslike growth to the midsternal to right-sided chest wall that is about the size of a half of a baseball. HEART/CARDIOVASCULAR: Regular. There is no tachycardia. There is no murmur. ABDOMEN: Abdomen is soft, nontender. Patient has normal bowel sounds. SKIN: Skin is warm and dry. NEURO: The patient is awake, alert, and oriented. The patient is cooperative. Normal speech. MUSCULOSKELETAL: There is no tenderness or deformity. - Vital Signs Vital signs: Vital Signs - 12hr 07/08/20 07/08/20 07/09/20 23:27 23:34 00:00 Temperature 98.4 F 98.4 F Pulse Rate 83 83 77 Pulse Rate [ Left Radial] Pulse Rate [ Right Radial] Respiratory 18 16 Rate Blood Pressure 134/84 Blood Pressure 134/64 [Left] O2 Sat by Pulse 95 96 Oximetry 07/09/20 07/09/20 07/09/20 03:58 04:00 07:44 Temperature 97.9 F 97.9 F 97.4 F L Pulse Rate 77 77 70 Pulse Rate [ Left Radial] Pulse Rate [ Right Radial] Respiratory 17 16 18 Rate Blood Pressure 131/88 104/70 Blood Pressure 131/88 [Left] O2 Sat by Pulse 96 98 96 Oximetry 07/09/20 07/09/20 08:00 08:40 Temperature Pulse Rate 74 Pulse Rate [ 104 H Left Radial] Pulse Rate [ 104 H Right Radial] Respiratory 19 Rate Blood Pressure Blood Pressure [Left] O2 Sat by Pulse 99 Oximetry - Lab 07/09/20 05:18 07/09/20 05:18 Most recent lab results Calcium 10.5 mg/dL (8.4-10.2) H 07/09/20 05:18 Calcium 10.6 mg/dL (8.4-10.2) H 07/09/20 05:18 Magnesium 1.70 mg/dL (1.7-2.3) 07/08/20 13:22 Medications & Allergies - Medications Allergies/Adverse Reactions: Allergies No Known Allergies Allergy (Verified 07/07/20 18:23) Home Medications: Home Medications Medication Instructions Recorded Confirmed Last Taken Type Divalproex Dr [DepaKOTE DR] 125 mg PO BID #60 tablet 02/17/[address] [Depakote Dr] 125 mg PO BID #60 tablet 02/17/20 Unknown Rx Famotidine [Pepcid] 20 mg PO BID #60 tablet 02/17/20 Unknown Rx Nicotine [Habitrol] 14 mg TD QDAY #7 patch 02/17/20 Unknown Rx levETIRAcetam [Keppra TAB] 750 mg PO BID #60 tablet 02/17/20 Unknown Rx traZODone [Desyrel] 50 mg PO QHS #30 tab 02/17/20 Unknown Rx traZODone [Desyrel] 50 mg PO QHS #30 tablet 02/17/20 Unknown Rx Active Medications: Generic Name Dose Route Start Last Admin Trade Name Jacquesq PRN Reason Stop Dose Admin Acetaminophen 650 mg 07/07/20 21:56 Tylenol PO Q4H PRN Pain MILD(1-3)/Fever >100.5/LE Aspirin 325 mg 07/08/20 10:00 07/08/20 10:51 Ecotrin PO 325 mg QDAY ROWENA Administration Calcitonin [place] 200 unit 07/08/20 11:00 07/08/20 22:22 Miacalcin IM 07/10/20 22:01 200 unit Q12HR ROWENA Administration Enoxaparin Sodium 40 mg 07/08/20 22:00 07/08/20 22:23 Enoxaparin SUB-Q 40 mg QDAY@2200 ROWENA Administration Protocol Hydromorphone HCl 1 mg 07/09/20 09:00 Dilaudid IV 07/09/20 14:00 ONCE ROWENA Hydromorphone HCl 1 mg 07/09/20 09:00 Dilaudid IV 07/09/20 14:00 ONCE [facility] Sodium Chloride 1,000 mls @ 125 mls/hr 07/08/20 10:00 Nacl 0.9% 1000 Ml IV DIRECT ROWENA Morphine Sulfate 2 mg 07/07/20 21:56 07/08/20 20:23 Morphine IV 2 mg Q5MIN PRN Administration Chest Pain Nitroglycerin 0.4 mg 07/07/20 21:56 Nitrostat SL Q5M PRN Chest Pain Ondansetron HCl 4 mg 07/07/20 21:56 Zofran IV Q8H PRN Nausea And Vomiting Ondansetron HCl 4 mg 07/09/20 09:00 Zofran IV 07/09/20 15:00 ONCE [facility] Oxycodone/Acetaminophen 1 tab 07/08/20 15:11 Percocet 5/325 PO Q4H PRN Pain, Moderate (4-6) Sodium Chloride 10 ml 07/07/20 21:56 07/08/20 04:24 Sodium Chloride Flush Syringe 10 Ml IV 10 ml PRN PRN Administration LINE FLUSH Sodium Chloride 10 ml 07/07/20 22:00 07/08/20 22:24 Sodium Chloride Flush Syringe 10 Ml IV 10 ml BID ROWENA Administration
[2020-07-09] MEDS: ASPIRIN EC 325 MG TAB PO SCH (10:10)
[2020-07-09] MEDS: CALCITONIN,SALMON,SYNTHETIC 400 UNIT/2 ML INJ MDV IM SCH ×2 (12:03→23:27)
--- NOTE | 2020-07-09 12:11 | Cat Scan Report ---
CT-GUIDED RIGHT LUNG/CHEST BIOPSY INDICATION : R CHEST SOFT TISSUE MASS, BX req oncology. COMPARISON: CT chest dated 07/07/2020 PROCEDURE: The risks (including but not limited to bleeding and infection) and benefits were explain ed to the patient and informed consent was obtained. All CT scans at this location are performed usi ng CT dose reduction for ALARA by means of automated exposure control. A time out procedure was performed. The procedure site was prepped and draped in the usual sterile f ashion and lidocaine was used for local anesthesia. 1 mg of Dilaudid was administered for anxiolysis. Using CT guidance, a 17-gauge introducer needle was advanced to the leading edge of an approximate 6. 4 x 6.4 cm soft tissue mass involving the anterior right middle lobe as well as the anterior chest wa ll. 4 separate 1.3 cm 18-gauge core biopsies were obtained. [facility] was [facility] The patient tolerated the procedure well with no complications. IMPRESSION: Successful CT-guided biopsy of the right chest barker/lung mass. Signer Name: Avni Martin Jr, MD Signed: 07/09/2020 12:06 PM Workstation Name: [id number]
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
[2020-07-09] MEDS: SODIUM FERRIC GLUCON/SUCRO 125 MG in SODIUM CHLORIDE 0.9% 100 ML IV SCH (14:08)
--- NOTE | 2020-07-09 15:13 | Discharge Summary ---
Providers - Providers Date of Admission: 07/07/20 21:23 Date of discharge: 07/09/20 Attending physician: ARMANDO SELLERS 07/07/20 Consult to Cardiac Rehabilitation [CONS] Routine Reason For Exam: Phase I 07/07/20 21:57 Consult to Cardiology [CONS] Routine Consulting Provider: AUDI SAAVEDRA Reason For Exam: chest pain 07/08/20 03:29 Consult to Physician [CONS] Routine Comment: Consulting Provider: NEHAL MARTINEZ Physician Instructions: Reason For Exam: Lung/Chest wall mass. H/O tobacco abuse 07/08/20 03:32 Consult to Physician [CONS] Routine Comment: Consulting Provider: TONG CARLISLE Physician Instructions: Reason For Exam: HYPERCALCEMIA 07/08/20 08:18 Consult to Physician [CONS] Routine Comment: Consulting Provider: ISAURA ANDERSON Physician Instructions: Reason For Exam: chest mass 07/08/20 12:55 Consult to Interventional Radiology [CONS] Urgent Consulting Provider: KONG ENRIQUEZ Reason For Exam: chest wall mass for FNA Notified:: no Primary care physician: [employer] Hospitalization Reason for admission: chest pain/mass Condition: Serious Hospital course: This is a 75 year old man with a 50 pk year or greater smoking who presented with chest wall mass on his right anterior chest wall just lateral to mid body of sternum. CT revealed question of primary lung mass with invasion into chest wall versus primary chest wall mass. Pt was admitted with dx of Chest mass and hypercalcemia. Pt was seen by Oncology and nephrology. Pt treated with IV calcitonin, IVF and pamidronate with improvement of calcium. Also, the patient has a CT directed bx of the mass completed by radiology. Pt. is to follow up with Nephrology, thoracic surgery and Oncology. D/c time 35 min Disposition: DC-01 TO HOME OR SELFCARE Time spent for discharge: 35 - Discharge Diagnoses (1) Chest pain Status: Acute Qualifiers: Chest pain type: unspecified Qualified Code(s): R07.9 - Chest pain, unspecified (2) Hypercalcemia Status: Acute (3) Liver mass, right lobe Status: Acute (4) Mass in chest Status: Acute (5) Tobacco abuse disorder Status: Acute (6) EtOH dependence Status: Chronic Qualifiers: Substance use status: in withdrawal Comment: Abstain from alcohol. Patient has been given #2 resources to assist with alcohol also AA is a good resource as well. (7) Nicotine dependence Status: Chronic Qualifiers: Nicotine product type: cigarettes Comment: Patient did not have a problem with smoking on this incident this hospitalization. (8) Hypercalcemia of malignancy Status: Acute Core Measure Documentation - Palliative Care Palliative Care/ Comfort Measures: Not Applicable - Core Measures Any of the following diagnoses?: none Exam - Constitutional Vitals: Temp Pulse Resp BP Pulse Ox 97.4 F L 77 81 H 116/57 99 07/09/20 07:44 07/09/20 10:45 07/09/20 11:00 07/09/20 11:00 07/09/20 11:00 General appearance: Present: no acute distress, well-nourished - EENT Eyes: Present: PERRL ENT: hearing intact, clear oral mucosa - Neck Neck: Present: supple, normal ROM - Respiratory Respiratory effort: normal Respiratory: bilateral: CTA - Cardiovascular Heart Sounds: Present: S1 & S2. Absent: rub, click - Extremities Extremities: pulses symmetrical, No edema Peripheral Pulses: within normal limits - Abdominal General gastrointestinal: Present: soft, non-tender, non-distended, normal bowel sounds Male genitourinary: Present: normal - Integumentary Integumentary: Present: clear, warm, dry - Musculoskeletal Musculoskeletal: gait normal, strength equal bilaterally - Psychiatric Psychiatric: appropriate mood/affect, intact judgment & insight - Neurologic Neurologic: CNII-XII intact, moves all extremities Plan Activity: advance as tolerated Weight Bearing Status: Weight Bear as Tolerated Diet: regular Follow up with: PRIMARY CAREMD [Primary Care Provider] - 3-5 Days NEHAL MARTINEZ MD [Staff Physician] - 7 Days ISAURA ANDERSON MD [Staff Physician] - 7 Days TONG CARLISLE MD [Staff Physician] - 7 Days
[2020-07-09] MEDS: ENOXAPARIN 40 MG/0.4 ML INJ SUB-Q SCH (21:46)
[2020-07-10] MEDS: POLYETHYLENE GLYCOL 3350 17 GM POWDER PO SCH ×2 (05:18→10:56)
--- NOTE | 2020-07-10 09:51 | Progress Note ---
Assessment and Plan Impression: * Hypercalcemia * Chest pain * Seizure disorder * history of Etoh abuse * chest mass Plan: * iv calcitonin and iv fluids * calcium is better at last check, follow up today * continue iv hydration, pamidronate was ordered by hematology * ?hypercalcemia of malignancy likely * oncology to evaluate and follow for lung mass * daily lytes and strict i/os * follow up spep, upep, umberto pending and pth levels noted * check pth related peptide with chest mass * ok to dc from renal standpoint Subjective Date of service: 07/10/20 Principal diagnosis: hypercalcemia Interval history: resting in bed today Objective - Exam Narrative Exam: GENERAL: The patient is well-developed well-nourished. HENT: Normocephalic. Atraumatic. Patient has moist mucous membranes. EYES: Extraocular motions are intact. Pupils equal reactive to light bilaterally. NECK: Supple. Trachea is midline. CHEST/LUNGS: Clear to auscultation. There is no respiratory distress noted. There is some reproducible chest pain along the chest wall, right greater than left. There is a firm masslike growth to the midsternal to right-sided chest wall that is about the size of a half of a baseball. HEART/CARDIOVASCULAR: Regular. There is no tachycardia. There is no murmur. ABDOMEN: Abdomen is soft, nontender. Patient has normal bowel sounds. SKIN: Skin is warm and dry. NEURO: The patient is awake, alert, and oriented. The patient is cooperative. Normal speech. MUSCULOSKELETAL: There is no tenderness or deformity. - Vital Signs Vital signs: Vital Signs - 12hr 07/09/20 07/10/20 07/10/20 23:23 00:00 03:40 Temperature 98.0 F 98.0 F Pulse Rate 94 H 91 H 97 H Respiratory 18 18 Rate Blood Pressure 127/82 145/92 O2 Sat by Pulse 95 96 Oximetry 07/10/20 07:29 Temperature Pulse Rate 89 Respiratory Rate Blood Pressure O2 Sat by Pulse Oximetry - Lab 07/09/20 05:18 07/09/20 05:18 Most recent lab results Calcium 10.5 mg/dL (8.4-10.2) H 07/09/20 05:18 Calcium 10.6 mg/dL (8.4-10.2) H 07/09/20 05:18 Magnesium 1.70 mg/dL (1.7-2.3) 07/08/20 13:22 Medications & Allergies - Medications Allergies/Adverse Reactions: Allergies No Known Allergies Allergy (Verified 07/07/20 18:23) Home Medications: Home Medications Medication Instructions Recorded Confirmed Last Taken Type Divalproex Dr [Depakote Dr] 125 mg PO BID #60 tablet 02/17/[address] [Depakote Dr] 125 mg PO BID #60 tablet 02/17/20 Unknown Rx Famotidine [Pepcid] 20 mg PO BID #60 tablet 02/17/20 Unknown Rx Nicotine [Habitrol] 14 mg TD QDAY #7 patch 02/17/20 Unknown Rx levETIRAcetam [Keppra TAB] 750 mg PO BID #60 tablet 02/17/20 Unknown Rx traZODone [Desyrel] 50 mg PO QHS #30 tab 02/17/20 Unknown Rx traZODone [Desyrel] 50 mg PO QHS #30 tablet 02/17/20 Unknown Rx Active Medications: Generic Name Dose Route Start Last Admin Trade Name Freq PRN Reason Stop Dose Admin Acetaminophen 650 mg 07/07/20 21:56 Tylenol PO Q4H PRN Pain MILD(1-3)/Fever >100.5/LE Aspirin 325 mg 07/08/20 10:00 07/09/20 10:10 Ecotrin PO Not Given [facility] Calcitonin [place] 200 unit 07/08/20 11:00 07/09/20 23:27 Miacalcin IM 07/10/20 22:01 200 unit Q12HR ROWENA Administration Enoxaparin Sodium 40 mg 07/08/20 22:00 07/09/20 21:46 Enoxaparin SUB-Q 40 mg QDAY@2200 ROWENA Administration Protocol Sodium Chloride 1,000 mls @ 125 mls/hr 07/08/20 10:00 Nacl 0.9% 1000 Ml IV DIRECT ROWENA Ferric Sodium Gluconate 110 mls @ 100 mls/hr 07/09/20 12:00 07/09/20 14:08 Complex 125 mg/ Sodium IV 07/11/20 11:05 100 mls/hr Chloride DAILY ROWENA Administration Morphine Sulfate 2 mg 07/07/20 21:56 07/08/20 20:23 Morphine IV 2 mg Q5MIN PRN Administration Chest Pain Nitroglycerin 0.4 mg 10/12/20 21:56 Nitrostat SL Q5M PRN Chest Pain Ondansetron HCl 4 mg 07/07/20 21:56 Zofran IV Q8H PRN Nausea And Vomiting Oxycodone/Acetaminophen 1 tab 07/08/20 15:11 Percocet 5/325 PO Q4H PRN Pain, Moderate (4-6) Polyethylene Glycol 17 gm 07/10/20 03:53 07/10/20 05:18 Miralax 3350 PO 17 gm QDAY ROWENA Administration Sodium Chloride 10 ml 07/07/20 21:56 07/08/20 04:24 Sodium Chloride Flush Syringe 10 Ml IV 10 ml PRN PRN Administration LINE FLUSH Sodium Chloride 10 ml 07/07/20 22:00 07/09/20 21:46 Sodium Chloride Flush Syringe 10 Ml IV 10 ml BID ROWENA Administration
[2020-07-10] MEDS ORDERED: POLYETHYLENE GLYCOL 3350 17 GM POWDER PO SCH (10:00)
[2020-07-10] MEDS: ASPIRIN EC 325 MG TAB PO SCH (10:56)
[2020-07-10] MEDS: SODIUM FERRIC GLUCON/SUCRO 125 MG in SODIUM CHLORIDE 0.9% 100 ML IV SCH (10:56)
[2020-07-10] MEDS: CALCITONIN,SALMON,SYNTHETIC 400 UNIT/2 ML INJ MDV IM SCH ×2 (10:56→21:41)
[2020-07-10] MEDS: ENOXAPARIN 40 MG/0.4 ML INJ SUB-Q SCH (21:40)
[2020-07-10 23:05] LABS: Blood Urea Nitrogen 12 mg/dL (9-20); Calcium 9.7 mg/dL (8.4-10.2); Hemolysis Index 1
[2020-07-10 23:07] LABS: BUN/Creatinine Ratio 17
--- NOTE | 2020-07-11 00:01 | Progress Note ---
Subjective Date of service: 07/10/20 Principal diagnosis: hypercalcemia Interval history: televisit via tsqrd 75yo man with new 8cm R chest wall mass, complaining of chest pain. Imaging also shows 2cm R liver mass found to have impressive hypercalcemia-->aredia and calcitonin-->Ca now 9.7 says he has a place to stay, lives alone asking to stay in hosptial because he can barely walk found ot have severe iron defic-->receiving IV iron infusions EXAM: disheveled looks weak does he get out of bed? no insight chest wall mass R mid chest SEE LABS BELOW IMPRESSION: anterior R chest wall mass -proven malignancy, pending final path not a good candidate for chemotherapy could be a radiation candidate (if it weere a plasmacytoma he would need urgent radiation) recent severe hypercalcemia due to malignancy REC: await pathology interpretation from chest wall mass await CEA and SPEP if plasmacytoma is found-->consider transfer for radiation if carcinoma is found-->considere discharge and try for referral to local heme/onc (will he go?) if he doesn't go to oncology and get treatment he will return with hypercalcemia soon-->then hospice Vital Signs Temp Pulse Resp BP Pulse Ox 98.6 F 84 20 107/75 96 07/10/20 15:17 07/10/20 19:33 07/10/20 19:33 07/10/20 19:33 07/10/20 19:33 Temperature -Last 24 Hours Temperature 98.6 F Temperature 98.0 F Active Medications Acetaminophen (Tylenol) 650 mg PO Q4H PRN PRN Reason: Pain MILD(1-3)/Fever >100.5/LE Aspirin (Ecotrin) 325 mg PO QDAY [facility] Last Admin: 07/10/20 10:56 Dose: 325 mg Documented by: Enoxaparin Sodium (Enoxaparin) 40 mg SUB-Q QDAY@2200 ROWENA; Protocol Last Admin: 07/10/20 21:40 Dose: 40 mg Documented by: Sodium Chloride (Nacl 0.9% 1000 Ml) 1,000 mls @ 125 mls/hr IV DIRECT ROWENA Ferric Sodium Gluconate Complex 125 mg/ Sodium Chloride 110 mls @ 100 mls/hr IV DAILY [facility] Stop: 07/11/20 11:05 Last Admin: 07/10/20 10:56 Dose: 100 mls/hr Documented by: Laboratory Last Values WBC 6.5 K/mm3 (4.5-11.0) 07/09/20 05:18 Hgb 10.6 gm/dl (11.8-15.2) L 07/09/20 05:18 Hct 32.3 % (35.5-45.6) L 07/09/20 05:18 Plt Count 353 K/mm3 (140-440) 07/09/20 05:18 INR 1.01 (0.87-1.13) 07/08/20 04:29 Creatinine 0.7 mg/dL (0.8-1.3) L 07/10/20 22:41 Iron 11 ug/dL (49-181) L 07/09/20 05:18 TIBC 157 mcg/dL (250-450) L 07/09/20 05:18 Lactate Dehydrogenase 181 units/L (91-180) H 07/09/20 05:18 Urine Mucus 3+ /HPF 07/07/20 21:53 Plasma/Serum Alcohol < 0.01 % (0-0.07) 07/07/20 18:37 Objective - Constitutional Vitals: Vital Signs - 12hr 07/10/20 07/10/20 15:17 19:33 Temperature 98.6 F Pulse Rate 108 H 84 Respiratory 20 20 Rate Blood Pressure 125/63 107/75 O2 Sat by Pulse 98 96 Oximetry - Labs CBC & Chem 7: 07/09/20 05:18 07/10/20 22:41 Labs: Abnormal lab results 07/10/20 Range/Units 22:41 Sodium 131 L (137-145) mmol/L Chloride 96.3 L (98-107) mmol/L Creatinine 0.7 L (0.8-1.3) mg/dL Glucose 121 H (75-100) mg/dL Medications & Allergies - Medications Allergies/Adverse Reactions: Allergies No Known Allergies Allergy (Verified 07/07/20 18:23) Home Medications: Home Medications Medication Instructions Recorded Confirmed Last Taken Type Divalproex Dr [Depakote Dr] 125 mg PO BID #60 tablet 02/17/[address] [Depakote Dr] 125 mg PO BID #60 tablet 02/17/20 Unknown Rx Famotidine [Pepcid] 20 mg PO BID #60 tablet 02/17/20 Unknown Rx Nicotine [Habitrol] 14 mg TD QDAY #7 patch 02/17/20 Unknown Rx levETIRAcetam [Keppra TAB] 750 mg PO BID #60 tablet 02/17/20 Unknown Rx traZODone [Desyrel] 50 mg PO QHS #30 tab 02/17/20 Unknown Rx traZODone [Desyrel] 50 mg PO QHS #30 tablet 02/17/20 Unknown Rx Active Medications: Generic Name Dose Route Start Last Admin Trade Name Freq PRN Reason Stop Dose Admin Acetaminophen 650 mg 07/07/20 21:56 Tylenol PO Q4H PRN Pain MILD(1-3)/Fever >100.5/LE Aspirin 325 mg 07/08/20 10:00 07/10/20 10:56 Ecotrin PO 325 mg QDAY ROWENA Administration Enoxaparin Sodium 40 mg 07/08/20 22:00 07/10/20 21:40 Enoxaparin SUB-Q 40 mg QDAY@2200 ROWENA Administration Protocol Sodium Chloride 1,000 mls @ 125 mls/hr 07/08/20 10:00 Nacl 0.9% 1000 Ml IV DIRECT ROWENA Ferric Sodium Gluconate 110 mls @ 100 mls/hr 07/09/20 12:00 07/10/20 10:56 Complex 125 mg/ Sodium IV 07/11/20 11:05 100 mls/hr Chloride DAILY ROWENA Administration Morphine Sulfate 2 mg 07/07/20 21:56 07/08/20 20:23 Morphine IV 2 mg Q5MIN PRN Administration Chest Pain Nitroglycerin 0.4 mg 07/07/20 21:56 Nitrostat SL Q5M PRN Chest Pain Ondansetron HCl 4 mg 07/07/20 21:56 Zofran IV Q8H PRN Nausea And Vomiting Oxycodone/Acetaminophen 1 tab 07/08/20 15:11 Percocet 5/325 PO Q4H PRN Pain, Moderate (4-6) Polyethylene Glycol 17 gm 07/10/20 03:53 07/10/20 10:56 Miralax 3350 PO 17 gm QDAY ROWENA Administration Sodium Chloride 10 ml 07/07/20 21:56 07/08/20 04:24 Sodium Chloride Flush Syringe 10 Ml IV 10 ml PRN PRN Administration LINE FLUSH Sodium Chloride 10 ml 07/07/20 22:00 07/10/20 21:47 Sodium Chloride Flush Syringe 10 Ml IV 10 ml BID ROWENA Administration HEART Score - HEART Score EKG: Non-specific Age: > 65 Risk factors: 1-2 risk factors Troponin: Troponin T < 0.010 ng/mL (0.00-0.029) 07/08/20 04:29 Troponin: < normal limit - Critical Actions Critical Actions: 4-6 pts:12-16.6% risk of adverse cardiac event. Should be admitted
[2020-07-11 07:08] LABS: Blood Urea Nitrogen 12 mg/dL (9-20); Calcium 9.7 mg/dL (8.4-10.2); Hemolysis Index 0
[2020-07-11 07:10] LABS: BUN/Creatinine Ratio 20
[2020-07-11] MEDS: ASPIRIN EC 325 MG TAB PO SCH (09:50)
[2020-07-11] MEDS: POLYETHYLENE GLYCOL 3350 17 GM POWDER PO SCH (09:50)
[2020-07-11] MEDS: SODIUM FERRIC GLUCON/SUCRO 125 MG in SODIUM CHLORIDE 0.9% 100 ML IV SCH (09:50)
--- NOTE | 2020-07-11 12:09 | Progress Note ---
Assessment and Plan Assessment and plan: Hypercalcemia of malignancy. Continue IV calcitonin and IV fluids. Nephrology following. Oncology following. Continue to monitor BMP. Follow-up PTH and PTH related peptide. Chest mass. Heme/oncology evaluation pending. Patient will need biopsy for further evaluation. Pulmonary following Chest pain. Etiology likely secondary to above. Echocardiogram reveals EF of 55 to 60%. Aortic valve sclerosis and enlargement of right ventricle. Seizure disorder. Continue AEDs and seizure precautions. History of EtOH abuse. [facility] protocol. 07/09/2020. Patient to have needle biopsy of tumor today with radiology. Continue pamidronate, IV fluid and calcitonin. Oncology to evaluate for possib le radiation versus outpatient follow-up. 07/10/20. Hypercalcemia resolved. Oncology following. Await biopsy results. PT evaluation for rehab. 07/11/2020. Physical therapy recommends subacute rehab. Await case management follow-up. Continue per oncology. Follow-up biopsy results - Patient Problems (1) Chest pain Current Visit: Yes Status: Acute Qualifiers: Chest pain type: unspecified Qualified Code(s): R07.9 - Chest pain, unspecified (2) Hypercalcemia Current Visit: Yes Status: Acute (3) Liver mass, right lobe Current Visit: Yes Status: Acute (4) Mass in chest Current Visit: Yes Status: Acute (5) Tobacco abuse disorder Current Visit: Yes Status: Acute (6) EtOH dependence Current Visit: No Status: Chronic Qualifiers: Substance use status: in withdrawal (7) Nicotine dependence Current Visit: No Status: Chronic Qualifiers: Nicotine product type: cigarettes (8) Hypercalcemia of malignancy Current Visit: Yes Status: Acute History Interval history: No new issues overnight. Hospitalist Physical - Constitutional Vitals: Temp Pulse Resp BP Pulse Ox 97.6 F 80 18 110/73 99 07/11/20 07:41 07/11/20 10:00 07/11/20 07:41 07/11/20 07:41 07/11/20 07:41 General appearance: Present: no acute distress, well-nourished - EENT Eyes: Present: PERRL, EOM intact ENT: hearing intact, clear oral mucosa, dentition normal - Neck Neck: Present: supple, normal ROM - Respiratory Respiratory effort: normal Respiratory: bilateral: CTA - Cardiovascular Rhythm: regular Heart Sounds: Present: S1 & S2. Absent: gallop, rub - Extremities Extremities: no ischemia, No edema, Full ROM - Abdominal General gastrointestinal: soft, non-tender, non-distended, normal bowel sounds - Integumentary Integumentary: Present: clear, warm, dry - Neurologic Neurologic: CNII-XII intact, moves all extremities HEART Score - HEART Score EKG: Non-specific Age: > 65 Risk factors: 1-2 risk factors Troponin: Troponin T < 0.010 ng/mL (0.00-0.029) 07/08/20 04:29 Troponin: < normal limit - Critical Actions Critical Actions: 4-6 pts:12-16.6% risk of adverse cardiac event. Should be admitted Results - Labs CBC & Chem 7: 07/09/20 05:18 07/11/20 04:44 Labs: Laboratory Last Values WBC 6.5 K/mm3 (4.5-11.0) 07/09/20 05:18 RBC 4.12 M/mm3 (3.65-5.03) 07/09/20 05:18 Hgb 10.6 gm/dl (11.8-15.2) L 07/09/20 05:18 Hct 32.3 % (35.5-45.6) L 07/09/20 05:18 MCV 78 fl (84-94) L 07/09/20 05:18 MCH 26 pg (28-32) L 07/09/20 05:18 MCHC 33 % (32-34) 07/09/20 05:18 RDW 18.7 % (13.2-15.2) H 07/09/20 05:18 Plt Count 353 K/mm3 (140-440) 07/09/20 05:18 Lymph % (Auto) 12.3 % (13.4-35.0) L 07/09/20 05:18 King % (Auto) 5.8 % (0.0-7.3) 07/09/20 05:18 Eos % (Auto) 0.5 % (0.0-4.3) 07/09/20 05:18 Baso % (Auto) 0.7 % (0.0-1.8) 07/09/20 05:18 Lymph # (Auto) 0.8 K/mm3 (1.2-5.4) L 07/09/20 05:18 King # (Auto) 0.4 K/mm3 (0.0-0.8) 07/09/20 05:18 Eos # (Auto) 0.0 K/mm3 (0.0-0.4) 07/09/20 05:18 Baso # (Auto) 0.0 K/mm3 (0.0-0.1) 07/09/20 05:18 Seg Neutrophils % 80.7 % (40.0-70.0) H 07/09/20 05:18 Seg Neutrophils # 5.2 K/mm3 (1.8-7.7) 07/09/20 05:18 PT 13.4 Sec. (12.2-14.9) 07/08/20 04:29 INR 1.01 (0.87-1.13) 07/08/20 04:29 Sodium 131 mmol/L (137-145) L 07/11/20 04:44 Potassium 4.4 mmol/L (3.6-5.0) 07/11/20 04:44 Chloride 95.8 mmol/L (98-107) L 07/11/20 04:44 Carbon Dioxide 25 mmol/L (22-30) 07/11/20 04:44 Anion Gap 15 mmol/L 07/11/20 04:44 BUN 12 mg/dL (9-20) 07/11/20 04:44 Creatinine 0.6 mg/dL (0.8-1.3) L 07/11/20 04:44 Estimated GFR > 60 ml/min 07/11/20 04:44 BUN/Creatinine Ratio 20 % 07/11/20 04:44 Glucose 122 mg/dL (75-100) H 07/11/20 04:44 POC Glucose 120 (70-105) H 07/08/20 22:02 Uric Acid 5.9 mg/dL (3.5-7.6) 07/08/20 13:22 Calcium 9.7 mg/dL (8.4-10.2) 07/11/20 04:44 Magnesium 1.70 mg/dL (1.7-2.3) 07/08/20 13:22 Iron 11 ug/dL (49-181) L 07/09/20 05:18 TIBC 157 mcg/dL (250-450) L 07/09/20 05:18 Total Bilirubin 0.40 mg/dL (0.1-1.2) 07/07/20 18:37 AST 17 units/L (5-40) 07/07/20 18:37 ALT 13 units/L (7-56) 07/07/20 18:37 Alkaline Phosphatase 90 units/L (35-129) 07/07/20 18:37 Lactate Dehydrogenase 181 units/L (91-180) H 07/09/20 05:18 Troponin T < 0.010 ng/mL (0.00-0.029) 07/08/20 04:29 Total Protein 7.5 g/dL (6.3-8.2) 07/07/20 18:37 Albumin 3.3 g/dL (3.9-5) L 07/07/20 18:37 Albumin/Globulin Ratio 0.8 % 07/07/20 18:37 Carcinoembryonic Ag 2.8 ng/mL (0.0-2.4) H 07/08/20 13:22 PTH Intact 4.66 pg/mL (15-65) L 07/08/20 13:22 Urine Color Yellow (Yellow) 07/07/20 21:53 Urine Turbidity Clear (Clear) 07/07/20 21:53 Urine pH 5.0 (5.0-7.0) 07/07/20 21:53 Ur Specific [place] > 1.059 (1.003-1.030) H 07/07/20 21:53 Urine Protein <15 mg/dl mg/dL (Negative) 07/07/20 21:53 Urine Glucose (UA) Neg mg/dL (Negative) 07/07/20 21:53 Urine Ketones Neg mg/dL (Negative) 07/07/20 21:53 Urine Blood Neg (Negative) 07/07/20 21:53 Urine Nitrite Neg (Negative) 07/07/20 21:53 Urine Bilirubin Neg (Negative) 07/07/20 21:53 Urine Urobilinogen 4.0 mg/dL (<2.0) 07/07/20 21:53 Ur Leukocyte Esterase Neg (Negative) 07/07/20 21:53 Urine WBC (Auto) 1.0 /HPF (0.0-6.0) 07/07/20 21:53 Urine RBC (Auto) 3.0 /HPF (0.0-6.0) 07/07/20 21:53 U Epithel Cells (Auto) 1.0 /HPF (0-13.0) 07/07/20 21:53 Urine Mucus 3+ /HPF 07/07/20 21:53 Plasma/Serum Alcohol < 0.01 % (0-0.07) 07/07/20 18:37 - Diagnostic Impressions Diagnostic Impressions: Echocardiogram 07/07/20 21:58 Transthoracic Echocardiogram Indication: Chest pain BP: 121/71 HR: 61 Conclusions *EF 55-60% *AORTIC VALVE SCLEROSIS *BORDERLINE DILITATION OF THE ASCENDING AORTA *ENLARGE OF THE RV RA *MILD MR TR Findings Left Ventricle: The left ventricular chamber size is normal. Global left ventricular systolic function is normal. The estimated ejection fraction is 55-60%. Abnormal left ventricular diastolic filling is observed, consistent with impaired relaxation. Left Atrium: The left atrial chamber size is normal. Right Ventricle: The right ventricle is moderately dilated. Right Atrium: The right atrium is mild to moderately dilated. Aortic Valve: Mild aortic leaflet calcification is visualized. There is trace of aortic regurgitation. Mitral Valve: The mitral valve leaflets are mildly thickened. There is mild mitral regurgitation. Tricuspid Valve: The tricuspid valve leaflets are normal. There is mild tricuspid regurgitation. The right ventricular systolic pressure is calculated at 33 mmHg. Pulmonic Valve: The pulmonic valve appears normal. There is trace pulmonic regurgitation. Pericardium: There is no pericardial effusion. Venous: The inferior vena cava appears normal. Measurements Chambers 2D Name Value Normal Range IVSd (2D) 0.99 cm (0.6 - 1.1) LVPWd (2D) 0.98 cm (0.6 - 1.1) LVIDd (2D) 4.01 cm (3.7 - 5.6) LVIDs (2D) 2.87 cm (2 - 3.8) LV FS (2D) 28.5 % - EF Teichholz (2D) 55.51 % - Ao root diameter (2D) 3.25 cm (2 - 3.7) Volumes/Mass Name Value Normal Range LA ESV SP 4CH (A/L) 15.35 ml - LA ESV SP 2CH (A/L) 29.09 ml - LA ESV BP (A/L) 21.88 ml - LA ESV BP (A/L) index 11.76 ml/m2 - LA ESV SP 4CH (MOD) 12.23 ml - LA ESV SP 2CH (MOD) 30.04 ml - LA ESV BP (MOD) 19.51 ml - LA ESV BP (MOD) index 10.49 ml/m2 - Diastolic/Systolic Function Name Value Normal Range MV E-wave Vmax 0.75 m/sec - MV deceleration time 254.42 msec - MV A-wave Vmax 0.99 m/sec - MV E:A ratio 0.75 ratio - Aortic Valve Name Value Normal Range AV Vmax 1.23 m/sec - AV VTI 25.66 cm - AV peak gradient 6 mmHg - AV mean gradient 3.02 mmHg - LVOT diameter 2.03 cm - LVOT Vmax 0.83 m/sec - LVOT VTI 17.44 cm - LVOT peak gradient 2.74 mmHg - LVOT mean gradient 1.29 mmHg - SV LVOT 56.33 ml - LATOYA (continuity Vmax) 2.18 cm2 - LATOYA (continuity VTI) 2.2 cm2 - AR PHT 461.39 msec - AR peak gradient 46 mmHg - Mitral Valve Name Value Normal Range MR Vmax 3.39 m/sec - Tricuspid Valve Name Value Normal Range TR Vmax 2.76 m/sec - TR peak gradient 30 mmHg - RAP 3 mmHg - RVSP 33 mmHg - Pulmonic Valve/Qp:Qs Name Value Normal Range PV acceleration time 91.34 msec - Cloud/IV: Voiding Method Toilet IV Catheter Type [Right INT / Saline Lock Forearm] IV Catheter Type [Left Forearm INT / Saline Lock ] Active Medications - Current Medications Current Medications: Generic Name Dose Route Start Last Admin Trade Name Freq PRN Reason Stop Dose Admin Acetaminophen 650 mg 07/07/20 21:56 Tylenol PO Q4H PRN Pain MILD(1-3)/Fever >100.5/LE Aspirin 325 mg 07/08/20 10:00 07/11/20 09:50 Ecotrin PO 325 mg QDAY ROWENA Administration Enoxaparin Sodium 40 mg 07/08/20 22:00 07/10/20 21:40 Enoxaparin SUB-Q 40 mg QDAY@2200 ROWENA Administration Protocol Sodium Chloride 1,000 mls @ 125 mls/hr 07/08/20 10:00 Nacl 0.9% 1000 Ml IV DIRECT ROWENA Morphine Sulfate 2 mg 07/07/20 21:56 07/08/20 20:23 Morphine IV 2 mg Q5MIN PRN Administration Chest Pain Nitroglycerin 0.4 mg 07/07/20 21:56 Nitrostat SL Q5M PRN Chest Pain Ondansetron HCl 4 mg 07/07/20 21:56 Zofran IV Q8H PRN Nausea And Vomiting Oxycodone/Acetaminophen 1 tab 07/08/20 15:11 07/11/20 02:17 Percocet 5/325 PO 1 tab Q4H PRN Administration Pain, Moderate (4-6) Polyethylene Glycol 17 gm 07/10/20 03:53 07/11/20 09:50 Miralax 3350 PO 17 gm QDAY ROWENA Administration Sodium Chloride 10 ml 07/07/20 21:56 07/08/20 04:24 Sodium Chloride Flush Syringe 10 Ml IV 10 ml PRN PRN Administration LINE FLUSH Sodium Chloride 10 ml 07/07/20 22:00 07/11/20 09:50 Sodium Chloride Flush Syringe 10 Ml IV 10 ml BID ROWENA Administration Nutrition/Malnutrition Assess - Dietary Evaluation Nutrition/Malnutrition Findings: Nutrition Notes Start: 07/08/20 14:37 Freq: Status: Active Protocol: Document 07/08/20 14:37 CALEB (Rec: 07/08/20 14:43 CALEB [id number]) Co-Sign 07/08/20 14:37 LM Nutrition Notes Need for Assessment generated from: multi care technician,MST Initial or Follow up Assessment Other Pertinent Diagnosis Liver mass, ETOH abuse, smoker , chest pain Current Diet NPO Labs/Tests Ca 12.3 Pertinent Medications NS 250ml/hr Height 6 ft Weight 60.5 kg [place] Body Weight (kg) 80.90 BMI 18.1 Weight Status Underweight Subjective/Other Information Consulted MST 2. Per pt, no wt changes and has been eating normally. Pt's major concern was his constipation and his urine color. 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 Noted no bowel regimen in place. Recommending laxative if no medical contradictions, per RN , she will consult MD. Observed lunch tray with >75% of meal consumed. Burn Absent Trauma Absent GI Symptoms Constipation Current % PO Negligible Minimum of two criteria No physical signs of malnutrition #1 Nutrition Diagnosis No nutrition diagnosis at this time Nutrition Intervention Revisit per MD consult or patient Sign Off request:
--- NOTE | 2020-07-11 19:06 | Progress Note ---
Assessment and Plan Impression: * Hypercalcemia * Chest pain * Seizure disorder * history of Etoh abuse * chest mass Plan: * s/p iv calcitonin and iv fluids * calcium is better at last check, follow up today * continue iv hydration, pamidronate was ordered by hematology, dosed stopped * ?hypercalcemia of malignancy likely * oncology to evaluate and follow for lung mass * daily lytes and strict i/os * follow up spep, upep, umberto pending and pth levels noted * check pth related peptide with chest mass * ok to dc from renal standpoint, will see prn Subjective Date of service: 07/11/20 Principal diagnosis: hypercalcemia Interval history: resting in bed today Objective - Exam Narrative Exam: GENERAL: The patient is well-developed well-nourished. HENT: Normocephalic. Atraumatic. Patient has moist mucous membranes. EYES: Extraocular motions are intact. Pupils equal reactive to light bilaterally. NECK: Supple. Trachea is midline. CHEST/LUNGS: Clear to auscultation. There is no respiratory distress noted. There is some reproducible chest pain along the chest wall, right greater than left. There is a firm masslike growth to the midsternal to right-sided chest wall that is about the size of a half of a baseball. HEART/CARDIOVASCULAR: Regular. There is no tachycardia. There is no murmur. ABDOMEN: Abdomen is soft, nontender. Patient has normal bowel sounds. SKIN: Skin is warm and dry. NEURO: The patient is awake, alert, and oriented. The patient is cooperative. Normal speech. MUSCULOSKELETAL: There is no tenderness or deformity. - Vital Signs Vital signs: Vital Signs - 12hr 07/11/20 07/11/20 07/11/20 07:41 10:00 11:23 Temperature 97.6 F 98.7 F Pulse Rate 75 80 80 Respiratory 18 18 Rate Blood Pressure 110/73 107/71 O2 Sat by Pulse 99 99 Oximetry 07/11/20 15:48 Temperature 97.8 F Pulse Rate 87 Respiratory 18 Rate Blood Pressure 101/65 O2 Sat by Pulse 95 Oximetry - Lab 07/09/20 05:18 07/11/20 04:44 Most recent lab results Calcium 9.7 mg/dL (8.4-10.2) 07/11/20 04:44 Magnesium 1.70 mg/dL (1.7-2.3) 07/08/20 13:22 Medications & Allergies - Medications Allergies/Adverse Reactions: Allergies No Known Allergies Allergy (Verified 07/07/20 18:23) Home Medications: Home Medications Medication Instructions Recorded Confirmed Last Taken Type Divalproex Dr [Depakote Dr] 125 mg PO BID #60 tablet 02/17/[address] [Depakote Dr] 125 mg PO BID #60 tablet 02/17/20 Unknown Rx Famotidine [Pepcid] 20 mg PO BID #60 tablet 02/17/20 Unknown Rx Nicotine [Habitrol] 14 mg TD QDAY #7 patch 02/17/20 Unknown Rx levETIRAcetam [Keppra TAB] 750 mg PO BID #60 tablet 02/17/20 Unknown Rx traZODone [Desyrel] 50 mg PO QHS #30 tab 02/17/20 Unknown Rx traZODone [Desyrel] 50 mg PO QHS #30 tablet 02/17/20 Unknown Rx Active Medications: Generic Name Dose Route Start Last Admin Trade Name Freq PRN Reason Stop Dose Admin Acetaminophen 650 mg 07/07/20 21:56 Tylenol PO Q4H PRN Pain MILD(1-3)/Fever >100.5/LE Aspirin 325 mg 07/08/20 10:00 07/11/20 09:50 Ecotrin PO 325 mg QDAY ROWENA Administration Enoxaparin Sodium 40 mg 07/08/20 22:00 07/10/20 21:40 Enoxaparin SUB-Q 40 mg QDAY@2200 ROWENA Administration Protocol Sodium Chloride 1,000 mls @ 125 mls/hr 07/08/20 10:00 Nacl 0.9% 1000 Ml IV DIRECT ON LICENSE OF [facility] Morphine Sulfate 2 mg 07/07/20 21:56 07/08/20 20:23 Morphine IV 2 mg Q5MIN PRN Administration Chest Pain Nitroglycerin 0.4 mg 07/07/20 21:56 Nitrostat SL Q5M PRN Chest Pain Ondansetron HCl 4 mg 07/07/20 21:56 Zofran IV Q8H PRN Nausea And Vomiting Oxycodone/Acetaminophen 1 tab 07/08/20 15:11 07/11/20 02:17 Percocet 5/325 PO 1 tab Q4H PRN Administration Pain, Moderate (4-6) Polyethylene Glycol 17 gm 07/10/20 03:53 07/11/20 09:50 Miralax 3350 PO 17 gm QDAY ROWENA Administration Sodium Chloride 10 ml 07/07/20 21:56 07/08/20 04:24 Sodium Chloride Flush Syringe 10 Ml IV 10 ml PRN PRN Administration LINE FLUSH Sodium Chloride 10 ml 07/07/20 22:00 07/11/20 09:50 Sodium Chloride Flush Syringe 10 Ml IV 10 ml BID ROWENA Administration
[2020-07-11] MEDS ORDERED: ZOLPIDEM 5 MG TAB PO PRN (21:18)
--- NOTE | 2020-07-11 21:29 | Progress Note ---
Subjective Principal diagnosis: hypercalcemia Interval history: ONCOLOGY DATA REVIEW 75yo man with new 8cm R chest wall mass, complaining of chest pain. Imaging also shows 2cm R liver mass found to have impressive hypercalcemia-->aredia and calcitonin-->Ca now 9.7 says he has a place to stay, lives alone asking to stay in hospital because he can barely walk found ot have severe iron defic-->receiving IV iron infusions Chest wall mass, CT guided biopsy: Poorly differentiated carcinoma Pending immunohistochemical stains for further characterization of the tumor SEE LABS BELOW IMPRESSION: anterior R chest wall mass -metastatic carcinoma not a good candidate for chemotherapy could be a radiation candidate, but doubt he will go recent severe hypercalcemia due to malignancy REC: try for referral to local heme/onc (will he go?) end of life discussion is appropriate because it is doubtful he will receive antitumor therapy if he returns withh pain, consider transfer for inpatient radiation if he doesn't go to oncology and get treatment he will return with hypercalcemia soon-->then hospice Vital Signs Temp Pulse Resp BP Pulse Ox 97.8 F 92 H 18 122/54 97 07/11/20 15:48 07/11/20 20:14 07/11/20 20:14 07/11/20 20:14 07/11/20 20:14 Temperature -Last 24 Hours Temperature 97.8 F Temperature 98.7 F Temperature 97.6 F Temperature 99.3 F Active Medications Acetaminophen (Tylenol) 650 mg PO Q4H PRN PRN Reason: Pain MILD(1-3)/Fever >100.5/LE Aspirin (Ecotrin) 325 mg PO QDAY [facility] Last Admin: 07/11/20 09:50 Dose: 325 mg Documented by: Enoxaparin Sodium (Enoxaparin) 40 mg SUB-Q QDAY@2200 ROWENA; Protocol Last Admin: 07/10/20 21:40 Dose: 40 mg Documented by: Sodium Chloride (Nacl 0.9% 1000 Ml) 1,000 mls @ 125 mls/hr IV DIRECT ROWENA Morphine Sulfate (Morphine) 2 mg IV Q5MIN PRN PRN Reason: Chest Pain Last Admin: 07/08/20 20:23 Dose: 2 mg Documented by: Nitroglycerin (Nitrostat) 0.4 mg SL Q5M PRN PRN Reason: Chest Pain Ondansetron HCl (Zofran) 4 mg IV Q8H PRN PRN Reason: Nausea And Vomiting Oxycodone/Acetaminophen (Percocet 5/325) 1 tab PO Q4H PRN PRN Reason: Pain, Moderate (4-6) Last Admin: 07/11/20 02:17 Dose: 1 tab Documented by: Vital Signs Temp Pulse Resp BP Pulse Ox 97.8 F 92 H 18 122/54 97 07/11/20 15:48 07/11/20 20:14 07/11/20 20:14 07/11/20 20:14 07/11/20 20:14 Laboratory Last Values WBC 6.5 K/mm3 (4.5-11.0) 07/09/20 05:18 Hgb 10.6 gm/dl (11.8-15.2) L 07/09/20 05:18 Hct 32.3 % (35.5-45.6) L 07/09/20 05:18 Plt Count 353 K/mm3 (140-440) 07/09/20 05:18 Lymph % (Auto) 12.3 % (13.4-35.0) L 07/09/20 05:18 PT 13.4 Sec. (12.2-14.9) 07/08/20 04:29 INR 1.01 (0.87-1.13) 07/08/20 04:29 Sodium 131 mmol/L (137-145) L 07/11/20 04:44 Carcinoembryonic Ag 2.8 ng/mL (0.0-2.4) H 07/08/20 13:22 PTH Intact 4.66 pg/mL (15-65) L 07/08/20 13:22 Objective - Constitutional Vitals: Vital Signs - 12hr 07/11/20 07/11/20 07/11/20 10:00 11:23 15:48 Temperature 98.7 F 97.8 F Pulse Rate 80 80 87 Respiratory 18 18 Rate Blood Pressure 107/71 101/65 O2 Sat by Pulse 99 95 Oximetry 07/11/20 20:14 Temperature Pulse Rate 92 H Respiratory 18 Rate Blood Pressure 122/54 O2 Sat by Pulse 97 Oximetry - Labs CBC & Chem 7: 07/09/20 05:18 07/11/20 04:44 Labs: Abnormal lab results 07/08/20 07/10/2020 Range/Units 13:22 22:41 04:44 Sodium 131 L 131 L (137-145) mmol/L Chloride 96.3 L 95.8 L (98-107) mmol/L Creatinine 0.7 L 0.6 L (0.8-1.3) mg/dL Glucose 121 H 122 H (75-100) mg/dL Carcinoembryonic Ag 2.8 H (0.0-2.4) ng/mL Medications & Allergies - Medications Allergies/Adverse Reactions: Allergies No Known Allergies Allergy (Verified 07/07/20 18:23) Home Medications: Home Medications Medication Instructions Recorded Confirmed Last Taken Type Divalproex Dr [Depakote Dr] 125 mg PO BID #60 tablet 02/17/[address] [Depakote Dr] 125 mg PO BID #60 tablet 02/17/20 Unknown Rx Famotidine [Pepcid] 20 mg PO BID #60 tablet 02/17/20 Unknown Rx Nicotine [Habitrol] 14 mg TD QDAY #7 patch 02/17/20 Unknown Rx levETIRAcetam [Keppra TAB] 750 mg PO BID #60 tablet 02/17/20 Unknown Rx traZODone [Desyrel] 50 mg PO QHS #30 tab 02/17/20 Unknown Rx traZODone [Desyrel] 50 mg PO QHS #30 tablet 02/17/20 Unknown Rx Active Medications: Generic Name Dose Route Start Last Admin Trade Name Freq PRN Reason Stop Dose Admin Acetaminophen 650 mg 07/07/20 21:56 Tylenol PO Q4H PRN Pain MILD(1-3)/Fever >100.5/LE Aspirin 325 mg 07/08/20 10:00 07/11/20 09:50 Ecotrin PO 325 mg QDAY ROWENA Administration Enoxaparin Sodium 40 mg 07/08/20 22:00 07/10/20 21:40 Enoxaparin SUB-Q 40 mg QDAY@2200 ROWENA Administration Protocol Sodium Chloride 1,000 mls @ 125 mls/hr 07/08/20 10:00 Nacl 0.9% 1000 Ml IV DIRECT ROWENA Morphine Sulfate 2 mg 07/07/20 21:56 07/08/20 20:23 Morphine IV 2 mg Q5MIN PRN Administration Chest Pain Nitroglycerin 0.4 mg 07/07/20 21:56 Nitrostat SL Q5M PRN Chest Pain Ondansetron HCl 4 mg 07/07/20 21:56 Zofran IV Q8H PRN Nausea And Vomiting Oxycodone/Acetaminophen 1 tab 07/08/20 15:11 07/11/20 02:17 Percocet 5/325 PO 1 tab Q4H PRN Administration Pain, Moderate (4-6) Polyethylene Glycol 17 gm 07/10/20 03:53 07/11/20 09:50 Miralax 3350 PO 17 gm QDAY ROWENA Administration Sodium Chloride 10 ml 07/07/20 21:56 07/08/20 04:24 Sodium Chloride Flush Syringe 10 Ml IV 10 ml PRN PRN Administration LINE FLUSH Sodium Chloride 10 ml 07/07/20 22:00 07/11/20 09:50 Sodium Chloride Flush Syringe 10 Ml IV 10 ml BID ROWENA Administration Zolpidem Tartrate 5 mg 07/11/20 21:18 Ambien PO QHS PRN Sleep HEART Score - HEART Score EKG: Non-specific Age: > 65 Risk factors: 1-2 risk factors Troponin: Troponin T < 0.010 ng/mL (0.00-0.029) 07/08/20 04:29 Troponin: < normal limit - Critical Actions Critical Actions: 4-6 pts:12-16.6% risk of adverse cardiac event. Should be admitted
[2020-07-11] MEDS: ENOXAPARIN 40 MG/0.4 ML INJ SUB-Q SCH (21:40)
[2020-07-12 05:35] LABS: Albumin 2.5 g/dL (3.8-4.8)
[2020-07-12 06:27] LABS: Blood Urea Nitrogen 14 mg/dL (9-20); Calcium 9.2 mg/dL (8.4-10.2); Hemolysis Index 7
[2020-07-12 06:29] LABS: BUN/Creatinine Ratio 23
--- NOTE | 2020-07-12 09:15 | Progress Note ---
Assessment and Plan Assessment and plan: Hypercalcemia of malignancy. Continue IV calcitonin and IV fluids. Nephrology following. Oncology following. Continue to monitor BMP. Follow-up PTH and PTH related peptide. Chest mass. Heme/oncology evaluation pending. Patient will need biopsy for further evaluation. Pulmonary following Chest pain. Etiology likely secondary to above. Echocardiogram reveals EF of 55 to 60%. Aortic valve sclerosis and enlargement of right ventricle. Seizure disorder. Continue AEDs and seizure precautions. History of EtOH abuse. [facility] protocol. 07/09/2020. Patient to have needle biopsy of tumor today with radiology. Continue pamidronate, IV fluid and calcitonin. Oncology to evaluate for possib le radiation versus outpatient follow-up. 07/10/20. Hypercalcemia resolved. Oncology following. Await biopsy results. PT evaluation for rehab. 07/11/2020. Physical therapy recommends subacute rehab. Await case management follow-up. Continue per oncology. Follow-up biopsy results. 07/12/2020. 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 Await immunohistochemical stains for further characterization of tumor. I also had a long discussion with regards to possible palliative care/hospice. Hospice consult placed - Patient Problems (1) Chest pain Current Visit: Yes Status: Acute Qualifiers: Chest pain type: unspecified Qualified Code(s): R07.9 - Chest pain, unspecified (2) Hypercalcemia Current Visit: Yes Status: Acute (3) Liver mass, right lobe Current Visit: Yes Status: Acute (4) Mass in chest Current Visit: Yes Status: Acute (5) Tobacco abuse disorder Current Visit: Yes Status: Acute (6) EtOH dependence Current Visit: No Status: Chronic Qualifiers: Substance use status: in withdrawal (7) Nicotine dependence Current Visit: No Status: Chronic Qualifiers: Nicotine product type: cigarettes (8) Hypercalcemia of malignancy Current Visit: Yes Status: Acute History Interval history: No new issues overnight. Hospitalist Physical - Constitutional Vitals: Temp Pulse Resp BP Pulse Ox 98.0 F 81 18 98/71 100 07/12/20 08:02 07/12/20 08:02 07/12/20 08:37 07/12/20 08:02 07/12/20 08:02 General appearance: Present: no acute distress, well-nourished - EENT Eyes: Present: PERRL, EOM intact ENT: hearing intact, clear oral mucosa, dentition normal - Neck Neck: Present: supple, normal ROM - Respiratory Respiratory effort: normal Respiratory: bilateral: CTA - Cardiovascular Rhythm: regular Heart Sounds: Present: S1 & S2. Absent: gallop, rub - Extremities Extremities: no ischemia, No edema, Full ROM - Abdominal General gastrointestinal: soft, non-tender, non-distended, normal bowel sounds - Integumentary Integumentary: Present: clear, warm, dry - Neurologic Neurologic: CNII-XII intact, moves all extremities HEART Score - HEART Score EKG: Non-specific Age: > 65 Risk factors: 1-2 risk factors Troponin: Troponin T < 0.010 ng/mL (0.00-0.029) 07/08/20 04:29 Troponin: < normal limit - Critical Actions Critical Actions: 4-6 pts:12-16.6% risk of adverse cardiac event. Should be admitted Results - Labs CBC & Chem 7: 07/09/20 05:18 07/12/20 05:15 Labs: Laboratory Last Values WBC 6.5 K/mm3 (4.5-11.0) 07/09/20 05:18 RBC 4.12 M/mm3 (3.65-5.03) 07/09/20 05:18 Hgb 10.6 gm/dl (11.8-15.2) L 07/09/20 05:18 Hct 32.3 % (35.5-45.6) L 07/09/20 05:18 MCV 78 fl (84-94) L 07/09/20 05:18 MCH 26 pg (28-32) L 07/09/20 05:18 MCHC 33 % (32-34) 07/09/20 05:18 RDW 18.7 % (13.2-15.2) H 07/09/20 05:18 Plt Count 353 K/mm3 (140-440) 07/09/20 05:18 Lymph % (Auto) 12.3 % (13.4-35.0) L 07/09/20 05:18 Cloud % (Auto) 5.8 % (0.0-7.3) 07/09/20 05:18 Eos % (Auto) 0.5 % (0.0-4.3) 07/09/20 05:18 Baso % (Auto) 0.7 % (0.0-1.8) 07/09/20 05:18 Lymph # (Auto) 0.8 K/mm3 (1.2-5.4) L 07/09/20 05:18 Cloud # (Auto) 0.4 K/mm3 (0.0-0.8) 07/09/20 05:18 Eos # (Auto) 0.0 K/mm3 (0.0-0.4) 07/09/20 05:18 Baso # (Auto) 0.0 K/mm3 (0.0-0.1) 07/09/20 05:18 Seg Neutrophils % 80.7 % (40.0-70.0) H 07/09/20 05:18 Seg Neutrophils # 5.2 K/mm3 (1.8-7.7) 07/09/20 05:18 PT 13.4 Sec. (12.2-14.9) 07/08/20 04:29 INR 1.01 (0.87-1.13) 07/08/20 04:29 Sodium 130 mmol/L (137-145) L 07/12/20 05:15 Potassium 4.2 mmol/L (3.6-5.0) 07/12/20 05:15 Chloride 94.3 mmol/L (98-107) L 07/12/20 05:15 Carbon Dioxide 21 mmol/L (22-30) L 07/12/20 05:15 Anion Gap 19 mmol/L 07/12/20 05:15 BUN 14 mg/dL (9-20) 07/12/20 05:15 Creatinine 0.6 mg/dL (0.8-1.3) L 07/12/20 05:15 Estimated GFR > 60 ml/min 07/12/20 05:15 BUN/Creatinine Ratio 23 % 07/12/20 05:15 Glucose 125 mg/dL (75-100) H 07/12/20 05:15 POC Glucose 120 (70-105) H 07/08/20 22:02 Uric Acid 5.9 mg/dL (3.5-7.6) 07/08/20 13:22 Calcium 9.2 mg/dL (8.4-10.2) 07/12/20 05:15 Magnesium 1.70 mg/dL (1.7-2.3) 07/08/20 13:22 Iron 11 ug/dL (49-181) L 07/09/20 05:18 TIBC 157 mcg/dL (250-450) L 07/09/20 05:18 Total Bilirubin 0.40 mg/dL (0.1-1.2) 07/07/20 18:37 AST 17 units/L (5-40) 07/07/20 18:37 ALT 13 units/L (7-56) 07/07/20 18:37 Alkaline Phosphatase 90 units/L (35-129) 07/07/20 18:37 Lactate Dehydrogenase 181 units/L (91-180) H 07/09/20 05:18 Troponin T < 0.010 ng/mL (0.00-0.029) 07/08/20 04:29 Serum Total Protein 6.0 g/dL (6.1-8.1) L 07/08/20 13:22 Total Protein 7.5 g/dL (6.3-8.2) 07/07/20 18:37 Albumin 2.5 g/dL (3.8-4.8) L 07/08/20 13:22 Albumin/Globulin Ratio 0.8 % 07/07/20 18:37 Suuzf-5-Pcbmwchwn 0.7 g/dL (0.2-0.3) H 07/08/20 13:22 Pysby-3-Jrloicydd 1.1 g/dL (0.5-0.9) H 07/08/20 13:22 Beta Globulins 0.4 g/dL (0.2-0.5) 07/08/20 13:22 Gamma Globulins 1.0 g/dL (0.8-1.7) 07/08/20 13:22 Abnorm Protein Band 1 see below 07/08/20 13:22 PEP Interpretation see below H 07/08/20 13:22 Carcinoembryonic Ag 2.8 ng/mL (0.0-2.4) H 07/08/20 13:22 PTH Intact 4.66 pg/mL (15-65) L 07/08/20 13:22 Urine Color Yellow (Yellow) 07/07/20 21:53 Urine Turbidity Clear (Clear) 07/07/20 21:53 Urine pH 5.0 (5.0-7.0) 07/07/20 21:53 Ur Specific [place] > 1.059 (1.003-1.030) H 07/07/20 21:53 Urine Protein <15 mg/dl mg/dL (Negative) 07/07/20 21:53 Urine Glucose (UA) Neg mg/dL (Negative) 07/07/20 21:53 Urine Ketones Neg mg/dL (Negative) 07/07/20 21:53 Urine Blood Neg (Negative) 07/07/20 21:53 Urine Nitrite Neg (Negative) 07/07/20 21:53 Urine Bilirubin Neg (Negative) 07/07/20 21:53 Urine Urobilinogen 4.0 mg/dL (<2.0) 07/07/20 21:53 Ur Leukocyte Esterase Neg (Negative) 07/07/20 21:53 Urine WBC (Auto) 1.0 /HPF (0.0-6.0) 07/07/20 21:53 Urine RBC (Auto) 3.0 /HPF (0.0-6.0) 07/07/20 21:53 U Epithel Cells (Auto) 1.0 /HPF (0-13.0) 07/07/20 21:53 Urine Mucus 3+ /HPF 07/07/20 21:53 Plasma/Serum Alcohol < 0.01 % (0-0.07) 07/07/20 18:37 - Diagnostic Impressions Diagnostic Impressions: Echocardiogram 07/07/20 21:58 Transthoracic Echocardiogram Indication: Chest pain BP: 121/71 HR: 61 Conclusions *EF 55-60% *AORTIC VALVE SCLEROSIS *BORDERLINE DILITATION OF THE ASCENDING AORTA *ENLARGE OF THE RV RA *MILD MR TR Findings Left Ventricle: The left ventricular chamber size is normal. Global left ventricular systolic function is normal. The estimated ejection fraction is 55-60%. Abnormal left ventricular diastolic filling is observed, consistent with impaired relaxation. Left Atrium: The left atrial chamber size is normal. Right Ventricle: The right ventricle is moderately dilated. Right Atrium: The right atrium is mild to moderately dilated. Aortic Valve: Mild aortic leaflet calcification is visualized. There is trace of aortic regurgitation. Mitral Valve: The mitral valve leaflets are mildly thickened. There is mild mitral regurgitation. Tricuspid Valve: The tricuspid valve leaflets are normal. There is mild tricuspid regurgitation. The right ventricular systolic pressure is calculated at 33 mmHg. Pulmonic Valve: The pulmonic valve appears normal. There is trace pulmonic regurgitation. Pericardium: There is no pericardial effusion. Venous: The inferior vena cava appears normal. Measurements Chambers 2D Name Value Normal Range IVSd (2D) 0.99 cm (0.6 - 1.1) LVPWd (2D) 0.98 cm (0.6 - 1.1) LVIDd (2D) 4.01 cm (3.7 - 5.6) LVIDs (2D) 2.87 cm (2 - 3.8) LV FS (2D) 28.5 % - EF Teichholz (2D) 55.51 % - Ao root diameter (2D) 3.25 cm (2 - 3.7) Volumes/Mass Name Value Normal Range LA ESV SP 4CH (A/L) 15.35 ml - LA ESV SP 2CH (A/L) 29.09 ml - LA ESV BP (A/L) 21.88 ml - LA ESV BP (A/L) index 11.76 ml/m2 - LA ESV SP 4CH (MOD) 12.23 ml - LA ESV SP 2CH (MOD) 30.04 ml - LA ESV BP (MOD) 19.51 ml - LA ESV BP (MOD) index 10.49 ml/m2 - Diastolic/Systolic Function Name Value Normal Range MV E-wave Vmax 0.75 m/sec - MV deceleration time 254.42 msec - MV A-wave Vmax 0.99 m/sec - MV E:A ratio 0.75 ratio - Aortic Valve Name Value Normal Range AV Vmax 1.23 m/sec - AV VTI 25.66 cm - AV peak gradient 6 mmHg - AV mean gradient 3.02 mmHg - LVOT diameter 2.03 cm - LVOT Vmax 0.83 m/sec - LVOT VTI 17.44 cm - LVOT peak gradient 2.74 mmHg - LVOT mean gradient 1.29 mmHg - SV LVOT 56.33 ml - LATOYA (continuity Vmax) 2.18 cm2 - LATOYA (continuity VTI) 2.2 cm2 - AR PHT 461.39 msec - AR peak gradient 46 mmHg - Mitral Valve Name Value Normal Range MR Vmax 3.39 m/sec - Tricuspid Valve Name Value Normal Range TR Vmax 2.76 m/sec - TR peak gradient 30 mmHg - RAP 3 mmHg - RVSP 33 mmHg - Pulmonic Valve/Qp:Qs Name Value Normal Range PV acceleration time 91.34 msec - Cloud/IV: Voiding Method Condom Catheter IV Catheter Type [Right INT / Saline Lock Forearm] IV Catheter Type [Left Forearm INT / Saline Lock ] Active Medications - Current Medications Current Medications: Generic Name Dose Route Start Last Admin Trade Name Freq PRN Reason Stop Dose Admin Acetaminophen 650 mg 07/07/20 21:56 Tylenol PO Q4H PRN Pain MILD(1-3)/Fever >100.5/LE Aspirin 325 mg 07/08/20 10:00 07/11/20 09:50 Ecotrin PO 325 mg QDAY ROWENA Administration Enoxaparin Sodium 40 mg 07/08/20 22:00 07/11/20 21:40 Enoxaparin SUB-Q 40 mg QDAY@2200 ROWENA Administration Protocol Sodium Chloride 1,000 mls @ 125 mls/hr 07/08/20 10:00 Nacl 0.9% 1000 Ml IV DIRECT ROWENA Morphine Sulfate 2 mg 07/07/20 21:56 07/08/20 20:23 Morphine IV 2 mg Q5MIN PRN Administration Chest Pain Nitroglycerin 0.4 mg 07/07/20 21:56 Nitrostat SL Q5M PRN Chest Pain Ondansetron HCl 4 mg 07/07/20 21:56 Zofran IV Q8H PRN Nausea And Vomiting Oxycodone/Acetaminophen 1 tab 07/08/20 15:11 07/11/20 02:17 Percocet 5/325 PO 1 tab Q4H PRN Administration Pain, Moderate (4-6) Polyethylene Glycol 17 gm 07/10/20 03:53 07/11/20 09:50 Miralax 3350 PO 17 gm QDAY ROWENA Administration Sodium Chloride 10 ml 07/07/20 21:56 07/08/20 04:24 Sodium Chloride Flush Syringe 10 Ml IV 10 ml PRN PRN Administration LINE FLUSH Sodium Chloride 10 ml 07/07/20 22:00 07/11/20 21:40 Sodium Chloride Flush Syringe 10 Ml IV 10 ml BID ROWENA Administration Zolpidem Tartrate 5 mg 07/11/20 21:18 07/11/20 21:39 Ambien PO 5 mg QHS PRN Administration Sleep Nutrition/Malnutrition Assess - Dietary Evaluation Nutrition/Malnutrition Findings: Nutrition Notes Start: 07/08/20 14:37 Freq: Status: Active Protocol: Document 07/08/20 14:37 CALEB (Rec: 07/08/20 14:43 CALEB [id number]) Co-Sign 07/08/20 14:37 LM Nutrition Notes 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 Per pt, no wt changes and has been eating normally. Pt's major concern was his constipation and his urine color. 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 Noted no bowel regimen in place. Recommending laxative if no medical contradictions, per RN , she will consult MD. Observed lunch tray with >75% of meal consumed. Burn Absent Trauma Absent GI Symptoms Constipation Current % PO Negligible Minimum of two criteria No physical signs of malnutrition #1 Nutrition Diagnosis No nutrition diagnosis at this time Nutrition Intervention Revisit per MD consult or patient Sign Off request:
[2020-07-12] MEDS: POLYETHYLENE GLYCOL 3350 17 GM POWDER PO SCH (10:07)
[2020-07-12] MEDS: ASPIRIN EC 325 MG TAB PO SCH (10:07)
--- NOTE | 2020-07-12 12:04 | Progress Note ---
Assessment and Plan Impression: * Hypercalcemia * Chest pain * Seizure disorder * history of Etoh abuse * chest mass * hyponatremia Plan: * s/p iv calcitonin and iv fluids * sodium noted, add salt tabs. likely SIADH * calcium is better at last check * ?hypercalcemia of malignancy likely * oncology to evaluate and follow for lung mass * daily lytes and strict i/os * follow up spep, upep, umberto pending and pth levels noted * check pth related peptide with chest mass Subjective Date of service: 07/12/20 Principal diagnosis: hypercalcemia Interval history: resting in bed today Objective - Exam Narrative Exam: GENERAL: The patient is well-developed well-nourished. HENT: Normocephalic. Atraumatic. Patient has moist mucous membranes. EYES: Extraocular motions are intact. Pupils equal reactive to light bilaterally. NECK: Supple. Trachea is midline. CHEST/LUNGS: Clear to auscultation. There is no respiratory distress noted. There is some reproducible chest pain along the chest wall, right greater than left. There is a firm masslike growth to the midsternal to right-sided chest wall that is about the size of a half of a baseball. HEART/CARDIOVASCULAR: Regular. There is no tachycardia. There is no murmur. ABDOMEN: Abdomen is soft, nontender. Patient has normal bowel sounds. SKIN: Skin is warm and dry. NEURO: The patient is awake, alert, and oriented. The patient is cooperative. Normal speech. MUSCULOSKELETAL: There is no tenderness or deformity. - Vital Signs Vital signs: Vital Signs - 12hr 07/12/20 07/12/20 07/12/20 04:18 08:02 08:37 Temperature 99.2 F 98.0 F Pulse Rate 91 H 81 Respiratory 20 18 18 Rate Blood Pressure 101/65 98/71 O2 Sat by Pulse 100 100 Oximetry - Lab 07/09/20 05:18 07/12/20 05:15 Most recent lab results Calcium 9.2 mg/dL (8.4-10.2) 07/12/20 05:15 Magnesium 1.70 mg/dL (1.7-2.3) 07/08/20 13:22 Medications & Allergies - Medications Allergies/Adverse Reactions: Allergies No Known Allergies Allergy (Verified 07/07/20 18:23) Home Medications: Home Medications Medication Instructions Recorded Confirmed Last Taken Type Ashlie [place] [Depakote Dr] 125 mg PO BID #60 tablet 02/17/20 07/12/20 Unknown Rx Famotidine [Pepcid] 20 mg PO BID #60 tablet 02/17/20 07/12/20 Unknown Rx Nicotine [Habitrol] 14 mg TD QDAY #7 patch 02/17/20 07/12/20 Unknown Rx levETIRAcetam [Keppra TAB] 750 mg PO BID #60 tablet 02/17/20 07/12/20 Unknown Rx traZODone [Desyrel] 50 mg PO QHS #30 tablet 02/17/20 07/12/20 Unknown Rx Active Medications: Generic Name Dose Route Start Last Admin Trade Name Freq PRN Reason Stop Dose Admin Acetaminophen 650 mg 07/07/20 21:56 Tylenol PO Q4H PRN Pain MILD(1-3)/Fever >100.5/LE Aspirin 325 mg 07/08/20 10:00 07/12/20 10:07 Ecotrin PO 325 mg QDAY ROWENA Administration Enoxaparin Sodium 40 mg 07/08/20 22:00 07/11/20 21:40 Enoxaparin SUB-Q 40 mg QDAY@2200 ROWENA Administration Protocol Sodium Chloride 1,000 mls @ 125 mls/hr 07/08/20 10:00 Nacl 0.9% 1000 Ml IV DIRECT ROWENA Morphine Sulfate 2 mg 07/07/20 21:56 07/08/20 20:23 Morphine IV 2 mg Q5MIN PRN Administration Chest Pain Nitroglycerin 0.4 mg 07/07/20 21:56 Nitrostat SL Q5M PRN Chest Pain Ondansetron HCl 4 mg 07/07/20 21:56 Zofran IV Q8H PRN Nausea And Vomiting Oxycodone/Acetaminophen 1 tab 07/08/20 15:11 07/11/20 02:17 Percocet 5/325 PO 1 tab Q4H PRN Administration Pain, Moderate (4-6) Polyethylene Glycol 17 gm 07/10/20 03:53 07/12/20 10:07 Miralax 3350 PO 17 gm QDAY ROWENA Administration Sodium Chloride 10 ml 07/07/20 21:56 07/08/20 04:24 Sodium Chloride Flush Syringe 10 Ml IV 10 ml PRN PRN Administration LINE FLUSH Sodium Chloride 10 ml 07/07/20 22:00 07/12/20 10:08 Sodium Chloride Flush Syringe 10 Ml IV 10 ml BID ROWENA Administration Zolpidem Tartrate 5 mg 07/11/20 21:18 07/11/20 21:39 Ambien PO 5 mg QHS PRN Administration Sleep
[2020-07-12] MEDS ORDERED: SODIUM CHLORIDE 1 GM TAB PO SCH (13:00)
[2020-07-12 13:26] VITALS: BP 113/71
== END 2020-07-12 19:11 | disposition home or self-care (01) ==
LOC: ED 18:02 → 4A 21:23
PROVIDERS: ADMIT Internal Medicine Geriatric Medicine; ATTEND Hospitalist
DX: R07.89 Other chest pain (principal); R22.2 Localized swelling, mass and lump, trunk; E83.52 Hypercalcemia; R56.9 Unspecified convulsions; E87.1 Hypo-osmolality and hyponatremia; F17.210 Nicotine dependence, cigarettes, uncomplicated; Z79.82 Long term (current) use of aspirin; Z79.899 Other long term (current) drug therapy
CPT/HCPCS: 32405; 36415; 71045; 71260; 77012; 80048; 80053; 81001; 82164; 82310; 82378; 82962; 83550; 83615; 83735; 83970; 84165; 84484; 84550; 85025; 85610; 88172; 88173; 88307; 93005; 93306; 96361; 96365; 96366; 96367; 96372; 96375; 96376; 97110; 97116; 97162; 97166; 97530; 99285; G0378; J1170; J1650; J2270; J2405; J2430; J2916; J7030; J7050; Q9967; 80320; 88104; 88305; 88341; 88342; G0480; J0630